=== PATIENT | female | born 1930 | race Caucasian/White ===

== ENCOUNTER 2017-02-26 13:59 | Inpatient (IN) | payer MEDICARE ==
[2017-02-26] VITALS (18 sets, daily range): BP systolic 129–184; BP diastolic 58–115; PULSE 58–102; RESP 12–32; TEMP 97.3–98.1; O2SAT 93–100
[~2017-02-26 13:59] MED LIST: ALPR0.25 PO; AMLO5TAB22 PO; ASPI81TA82 PO; CALCTAB75 PO; CHOL1CAP6 PO; DONE5TAB14 PO; FURO20 PO; LEVO50TA51; MACR100C2 PO; POTA8TAB27 PO; PRIL20CA PO; PROP80TA PO
[2017-02-26] MEDS ORDERED: SODIUM CHLOR 0.9% 1000 ML INJ 1,000 ML IV ONE (14:07)
[2017-02-26 14:20] LABS: I-STAT POTASSIUM 4.3 MMOL/L (3.5-4.9); I-STAT SODIUM 138 MMOL/L (138-146)
[2017-02-26 14:22] LABS: AUTOMATED NEUTROPHIL # 4.6 TH/MM3 (1.8-7.7); BASOPHIL # 0.1 TH/MM3 (0-0.2); BASOPHIL % 0.4 % (0.0-2.0); EOSINOPHIL # 0.2 TH/MM3 (0-0.4); EOSINOPHIL % 1.5 % (0.0-4.0); HEMATOCRIT 41.7 % (35.0-46.0); MEAN CELL VOLUME 91.2 FL (80.0-100.0); MONO % 6.3 % (0.0-8.0); NEUT % 33.8 % (16.0-70.0); PLATELET COUNT 210 TH/MM3 (150-450); RED BLOOD COUNT 4.58 MIL/MM3 (4.00-5.30); RED CELL DISTRIBUTION WIDTH 14.4 % (11.6-17.2); WHITE BLOOD COUNT 13.7 TH/MM3 (4.0-11.0)
--- NOTE | 2017-02-26 14:25 | RADRPT ---
EXAM DATE/TIME: 02/26/2017 14:08 [facility] COMPARISON: CT BRAIN W/O CONTRAST, October 17, 2013, 23:05. INDICATIONS : Stroke alert, right sided weakness and rightward gaze. RADIATION DOSE: 56.35 CTDIvol (mGy) This report was called by Dr. Marcum to Dr. Oquendo at 2: 22 PM MEDICAL HISTORY : Non-responsive. SURGICAL HISTORY : Non-responsive. ENCOUNTER: Initial ACUITY: 1 day PAIN SCALE: Non-responsive LOCATION: Bilateral head TECHNIQUE: Multiple contiguous axial images were obtained of the head. Using automated exposure control and adj ustment of the mA and/or kV according to patient size, radiation dose was kept as low as reasonably a chievable to obtain optimal diagnostic quality images. DICOM format image data is available electro nically for review and comparison. FINDINGS: CEREBRUM: The ventricles are normal for age. No evidence of midline shift, mass lesion, hemorrhage or acute in farction. No extra-axial fluid collections are seen. POSTERIOR FOSSA: The cerebellum and brainstem are intact. The 4th ventricle is midline. The cerebellopontine angle i s unremarkable. EXTRACRANIAL: The visualized portion of the orbits is intact. SKULL: The calvaria is intact. No evidence of skull fracture. CONCLUSION: 1. White matter ischemic changes. No acute intracranial abnormality. Virgilio Marcum MD on February 26, 2017 at 14:19 Board Certified Radiologist. This report was verified electronically.
[2017-02-26] MEDS ORDERED: LORazepam 2 MG/ML VIAL ONE (14:26)
[2017-02-26 14:28] LABS: HEMO FLAGS AUTO DIFF
[2017-02-26 14:31] LABS: APTT (PATIENT) 22.3 SEC (24.3-30.1); PROTHROMBIN TIME - PATIENT 10.9 SEC (9.8-11.6)
[2017-02-26 14:39] LABS: BETA HCG QUANT 4 MIU/ML (0-5)
[2017-02-26 14:40] LABS: CREATINE KINASE 36 U/L (26-192)
[2017-02-26] MEDS ORDERED: FOSPHENYTOIN INJ 1,000 MGPE in SODIUM CHLORIDE 0.9% INJ 50 ML IV ONE (14:45)
[2017-02-26] MEDS ORDERED: ETOMIDATE 20 MG/10 ML VIAL IVP ONE (14:45)
[2017-02-26] MEDS ORDERED: SUCCINYLCHOLINE CHLORIDE 200 MG/10 ML VIAL IVP ONE (14:45)
[2017-02-26] MEDS ORDERED: SODIUM CHLORIDE 0.9% FLUSH 10 ML FLUSH IVF PRN (14:45)
--- NOTE | 2017-02-26 14:52 | PD ---
HPI Chief Complaint: Stroke Alert Time Seen by Provider: 14:07 Travel History International Travel<30 days: No Contact w/Intl Traveler<30days: No History of Present Illness HPI This is an 86-year-old female who reportedly was at her custodial going to sit down to eat when she lost consciousness and the staff helped her to the floor. Onset of symptoms at 1:30. She evidently had a GCS of 3 for about 15 minutes. When EMS arrived she slowly started to have some purposeful movements moving her arms and mumbling. Per paperwork the patient has a history of heart disease, chronic kidney disease and COPD as well as hypertension. PFSH Past Medical History Arthritis: Yes Asthma: Yes Blood Disorders: No Anxiety: Yes Depression: Yes Heart Rhythm Problems: No Cancer: No Cardiac Catheterization: No Cardiovascular Problems: No High Cholesterol: No Congestive Heart Failure: No COPD: Yes Diabetes: No Diminished Hearing: No Endocrine: Yes Gastrointestinal Disorders: Yes (GERD, HEMORRHOIDS, FECAL IMPACTION TENDENCY) GERD: Yes Glaucoma: No Genitourinary: Yes (INCONTINENCE) Hiatal Hernia: Yes Hypertension: Yes Immune Disorder: No Musculoskeletal: Yes (ARTHRITIS, DDD, OSTEOPORESIS) Neurologic: Yes (TRIGEMINAL NEURALGIA, MIGRAINES) Psychiatric: Yes (DEPRESSION) Reproductive: No Respiratory: Yes (COPD, ASTHMA) Immunizations Current: Yes Thyroid Disease: Yes Menopausal: Yes : 1 Para: 1 Tubal Ligation: Yes Past Surgical History Abdominal Surgery: Yes (LAP ROSALIND, APPY) AICD: No Appendectomy: Yes Cholecystectomy: Yes Coronary Artery Bypass Graft: No Eye Surgery: Yes (CATARACT EXTRACT.) Genitourinary Surgery: Yes ("BLADDER SX") Gynecologic Surgery: Yes (TUBAL LIG., HYSTERECTOMY, RECTOCELE REP.) Hysterectomy: Yes (72) Joint Replacement: No Neurologic Surgery: Yes (L5 SURGERY, CERVICAL FUSION, KYPHOPLASTY) Oral Surgery: Yes (T & A) Pacemaker: No Tonsillectomy: Yes (at age 13) Other Surgery: Yes Social History Alcohol Use: Yes (rare) Tobacco Use: No Substance Use: No Allergies-Medications (Allergen,Severity, Reaction): Coded Allergies: Hydrocodone (Verified Allergy, Severe, HALLUCINATIONS, 07/31/16) Reported Meds & Prescriptions Reported Meds & Active Scripts Active Macrobid (Nitrofurantoin Monoh/Nitrofur Macro) 100 Mg Cap 100 Mg PO BID 10 Days Amlodipine5 5 Mg Tab 1 Tab PO DAILY Reported Prilosec 20 mg (Omeprazole) 20 Mg Cap 20 Mg PO DAILY Vitamin D-3 (Cholecalciferol) 1,000 Unit Tab 1,000 Unit PO BID Alprazolam 0.25 Mg Tab 0.25 Mg PO Q8HR PRN Aspir-81 (Aspirin) 81 Mg Tab 81 Mg PO DAILY Donepezil 5 mg 5 Mg Tab 5 Mg PO DAILY Potassium Chloride ER 8 meq (Potassium Chloride) 8 Meq Tab 8 Meq PO Lasix 20 Mg Tab (Furosemide) 20 Mg Tab 20 Mg PO Calcium Citrate +D+D + Tab 1 Tab PO DAILY Texaapt86 Mg 80 Mg Tab 80 Mg PO DAILY Levoxyl (Levothyroxine Sodium) 50 Mcg Tab 50 Mcg DAILY Review of Systems ROS Limitations: Unresponsive Physical Exam Narrative GENERAL: Ill-appearing SKIN: Focused skin assessment warm and dry. HEAD: Atraumatic. Normocephalic. EYES: Pupils equal and round. No injection or drainage. ENT: Some blood in her mouth. NECK: Trachea midline. CARDIOVASCULAR: Regular rate and rhythm. No murmur appreciated. RESPIRATORY: Clear to auscultation. Breath sounds equal bilaterally. GASTROINTESTINAL: Abdomen soft, non-tender, nondistended. MUSCULOSKELETAL: No obvious deformities. NEUROLOGICAL: Fixed gaze deviation to the right, some facial droop on the right , weakness of the left upper extremity, doesn't lift either leg, mumbles some sounds Data Data Last Documented VS Vital Signs Date Time Temp Pulse Resp B/P Pulse Ox O2 Delivery O2 Flow Rate FiO2 02/26/17 14:41 83 12 141/67 100 Ventilator 100 02/26/17 14:04 4.00 Orders Diet Npo (02/26/17 Dinner) Activity Bed Rest (02/26/17 ) Electrocardiogram (02/26/17 ) I-Stat Creatinine (02/26/17 14:07) I-Stat Profile (02/26/17 14:07) Prothrombin Time / Inr (Pt) (02/26/17 14:07) Act Partial Throm Time (Ptt) (02/26/17 14:07) Complete Blood Count With Diff (02/26/17 14:07) Fibrinogen (02/26/17 14:07) Creatine Kinase (Cpk) (02/26/17 14:07) Troponin I (02/26/17 14:07) Ua Includes Microscopic (02/26/17 14:07) Drug Screen, Random Urine (02/26/17 14:07) Type And Screen (02/26/17 14:07) Ct Brain W/O Iv Contrast(Rout) (02/26/17 ) Beta Hcg (Quant/Titer) (02/26/17 14:07) Consult Neurology (02/26/17 ) Blood Glucose (02/26/17 14:07) Ecg Monitoring (02/26/17 14:07) Neuro Checks Q2HX12,Q4H (02/26/17 14:07) Nursing Bedside Swallow Assess .ONCE (02/26/17 14:07) Iv Access Insert/Monitor (02/26/17 14:07) NPO (02/26/17 14:07) Oximetry (02/26/17 14:07) Oxygen Administration (02/26/17 14:07) Sodium Chlor 0.9% 1000 Ml Inj (Ns 1000 M (02/26/17 14:07) Resp Oxygen Reese C Titrat 1-4 L (02/26/17 14:07) Cath For Specimen (02/26/17 14:07) Lorazepam Inj (Ativan Inj) (02/26/17 14:26) (Hub Use Only)Inp Phy Cons/Ref (02/26/17 ) Fosphenytoin Inj (Cerebyx Inj) (02/26/17 14:45) Chest, Single Ap (02/26/17 14:40) Arterial Blood Gas (Abg) (02/26/17 14:40) Ng Gastric Tube Insert/Monitor (02/26/17 14:40) Urinary Catheter Insert/Apply (02/26/17 14:40) Etomidate Inj (Amidate Inj) (02/26/17 14:45) Succinylcholine Inj (Quelicin Inj) (02/26/17 14:45) Sodium Chloride 0.9% Flush (Ns Flush) (02/26/17 14:45) Portable Eeg (02/26/17 ) Propofol 1000 Mg/100 Ml Inj (Diprivan 10 (02/26/17 14:45) ^ Infusion (02/26/17 14:43) RASS (02/26/17 14:43) Neurological Rass Scale JOSS.Q2H (02/26/17 14:43) Admit Order (Ed Use Only) (02/26/17 14:59) Labs Laboratory Tests Test 02/26/17 14:08 White Blood Count 13.7 TH/MM3 Red Blood Count 4.58 MIL/MM3 Hemoglobin 13.8 GM/DL Bedside Hemoglobin 15.0 G/DL Hematocrit 41.7 % Bedside Hematocrit 44.0 % Mean Corpuscular Volume 91.2 FL Mean Corpuscular Hemoglobin 30.0 PG Mean Corpuscular Hemoglobin 33.0 % Concent Red Cell Distribution Width 14.4 % Platelet Count 210 TH/MM3 Mean Platelet Volume 8.8 FL Neutrophils (%) (Auto) 33.8 % Lymphocytes (%) (Auto) 58.0 % Monocytes (%) (Auto) 6.3 % Eosinophils (%) (Auto) 1.5 % Basophils (%) (Auto) 0.4 % Neutrophils # (Auto) 4.6 TH/MM3 Lymphocytes # (Auto) 8.0 TH/MM3 Monocytes # (Auto) 0.9 TH/MM3 Eosinophils # (Auto) 0.2 TH/MM3 Basophils # (Auto) 0.1 TH/MM3 CBC Comment AUTO DIFF Differential Comment AUTO DIFF CONFIRMED Platelet Estimate NORMAL Platelet Morphology Comment NORMAL Prothrombin Time 10.9 SEC Prothromb Time International 1.0 RATIO Ratio Activated Partial 22.3 SEC Thromboplast Time Fibrinogen 374 mg/dL Bedside Sodium 138 MMOL/L Bedside Potassium 4.3 MMOL/L Bedside Chloride 103 MMOL/L Bedside Blood Urea Nitrogen 18 MG/DL Bedside Creatinine 0.8 MG/DL Bedside Glucose 120 MG/DL Total Creatine Kinase 36 U/L Troponin I LESS THAN 0.02 NG/ML Human Chorionic Gonadotropin, 4 MIU/ML Quant Blood Type A NEGATIVE Antibody Screen NEGATIVE Blood Bank Comment [facility] Medical Screen Exam Complete: Yes Emergency Medical Condition: Yes EKG Prior to Arrival: No Differential Diagnosis Leukocytosis troponin is normal Last [address] 02/26/17 0000 Signed Impressions: Service Date/Time: Sunday, February 26, 2017 14:08 - CONCLUSION: 1. White matter ischemic changes. No acute intracranial abnormality. Virgilio Marcum MD Chest x-ray: Endotracheal tube is in position Narrative Course This is an 86-year-old female who presents to the emergency department ended up unresponsive at her custodial. She had a GCS of 3 for over 15 minutes and had minimal neurologic response with EMS. On arrival she was placed on a monitor and an IV was established. She is found have an NIH stroke scale of 30. CT was negative for intracranial hemorrhage. I spoke to Dr. Sanchez who was on-call for stroke. Due to the patient's advanced age and advanced NIH stroke scale Dr. Sanchez felt that the patient was very high risk and he preferred not to do tPA on this patient. Pt. went to CT where she had a seizure. I was concerned for possible aspiration so the patient was intubated. I did have a conversation with the patient's children explaining what was going on. They say the patient does have a living will, and she would not want to be kept alive artificially. We discussed that it would be reasonable to obtain an EEG and MRI and identify what the etiology of the patient's symptoms are. If it is a stroke the patient likely has a poor prognosis and the family expressed understanding. Critical Care Narrative Aggregate critical care time was 50 minutes. Time to perform other separately billable procedures was not included in the critical care time. My time did not include minutes spent treating any other patients simultaneously or on activities that did not directly contribute to the patient's treatment. The services I provided to this patient were to treat and/or prevent clinically significant deterioration that could result in: Disability, I provided critical care services requiring my management, as noted below: Chart data review, documentation time, medication orders and management, vital sign assessments/reviewing monitor data, ordering and reviewing lab tests, ordering and interpreting/reviewing x-rays and diagnostic studies, care of the patient and discussion of the patient with the admitting physicians. Stroke Alert NIHSS NIH Stroke Scale Result: 30 NIHSS Time Completed: 14:03 Physician Communication Physician Communication Discussed with Dr. Sanchez and Dr. Barker Diagnosis Diagnosis: Primary Impression: Seizure Admitting Physician Requests: Admit Fely Oquendo MD Feb 26, 2017 14:52
[2017-02-26] MEDS: PROPOFOL 1000 MG/100 ML INJ 100 ML IV SCH ×3 (14:54→23:50)
[2017-02-26 15:07] LABS: PLATELET ESTIMATE SMEAR NORMAL (NORMAL); PLATELET MORPHOLOGY NORMAL (NORMAL); SCAN/DIFF AUTO DIFF CONFIRMED
[2017-02-26] MEDS ORDERED: RANI150T PO (15:42)
[2017-02-26] MEDS ORDERED: FURO20TA PO (15:42)
[2017-02-26] MEDS ORDERED: PROP80TA PO (15:42)
[2017-02-26] MEDS ORDERED: DONE10TA7 PO (15:42)
[2017-02-26] MEDS ORDERED: IPRASOL INH (15:42)
[2017-02-26] MEDS ORDERED: LEVO50TA4 PO (15:42)
[2017-02-26] MEDS ORDERED: KLOR8TAB PO (15:42)
--- NOTE | 2017-02-26 15:45 | RADRPT ---
EXAM DATE/TIME: 02/26/2017 15:02 [facility] COMPARISON: No previous studies available for comparison. INDICATIONS : Stroke alert. Syncopal episode. Seizure. Vomiting blood. Post intubation. MEDICAL HISTORY : Non-responsive. SURGICAL HISTORY : Non-responsive. ENCOUNTER: Initial ACUITY: 1 day PAIN SCORE: Non-responsive. LOCATION: Bilateral chest FINDINGS: Endotracheal tube and passage position. NG tube in distal esophagus. No focal lung consolidation. No pneumothorax or effusion. Heart size upper limits normal. Atherosclerotic and tortuous aorta. Previou s right shoulder joint replacement. CONCLUSION: 1. Nasogastric tube tip in distal esophagus. This is not seen to enter the stomach. 2. Endotracheal tube in satisfactory position. 3. Remote compression deformity lower thoracic spine status post kyphoplasty. 4. No lung consolidation or pleural effusion identified. Virgilio Marcum MD on February 26, 2017 at 15:41 Board Certified Radiologist. This report was verified electronically.
--- NOTE | 2017-02-26 16:15 | HHI.HP ---
[facility] Service Critical Care Medicine Primary Care Physician Karina Dwyer MD Admission Diagnosis seizure Diagnosis: (1) Memory loss Diagnosis: Principal (2) Seizure Diagnosis: Principal (3) Respiratory failure Diagnosis: Principal (4) Depression Diagnosis: Principal (5) Gastroesophageal reflux disease Diagnosis: Principal (6) COPD (chronic obstructive pulmonary disease) Diagnosis: Principal (7) Hypothyroidism Diagnosis: Principal (8) Chronic cough Diagnosis: Principal (9) Chronic constipation Diagnosis: Principal (10) Dementia Diagnosis: Principal (11) Leukocytosis Diagnosis: Principal (12) Osteoporosis Diagnosis: Principal (13) Compression fracture of body of thoracic vertebra Diagnosis: Secondary (14) Altered mental status, unspecified Diagnosis: Principal (15) Dyspnea on exertion Diagnosis: Principal (16) Hyperlipidemia Diagnosis: Principal (17) Chronic pain Diagnosis: Principal (18) Hypertension Diagnosis: Principal (19) GERD (gastroesophageal reflux disease) Diagnosis: Principal Chief Complaint: Presents from alf with altered mental status and NIH score 30. Travel History International Travel<30 Days: No Contact w/Intl Traveler <30 Da: No Traveled to Known Affected Are: No History of Present Illness 86-year-old female. Full code. Patient is a resident of [facility] assisted [facility]. She has a living will stating that she does not want to be kept on prolonged life support however at the present time she is a full code. Patient presented to [facility] for the following history. She has history of dementia, depression, gastroesophageal reflux disease, COPD, hypothyroidism, osteoarthritis/osteoporosis, compression fractures, hypertension, dyslipidemia, chronic lower extremity edema and chronic pain syndrome. According to records, at 1:30 PM patient became unresponsive and was taken the floor lightly by assistance at her living facility. Unknown if she struck her head. Her GCS score was documented as 3 for approximately 15 minutes later she became more responsive. She is transferred to [facility] for further evaluation treatment. A stroke alert was called. BMP was unremarkable. CBC showed a leukocytosis. CT head showed white matter ischemic changes otherwise unremarkable. In CAT scan patient was noted to have a generalized tonic-clonic seizures unknown duration with questionable aspiration and after which, patient received received 20 mg etomidate 100 mg of succinylcholine was intubated by ED physician. Dr. Sanchez/neurology was contacted. Due to patient's age and NIH of 30 not a candidate for TPA. MRI/MRA brain/neck can EEG currently pending. Review of Systems ROS Limitations: Intubated Past Family Social History Allergies: Coded Allergies: Hydrocodone (Verified Allergy, Severe, HALLUCINATIONS, 02/26/17) Past Medical History Dementia disorder NOS Depression Gastroesophageal reflux disease COPD/asthma Hypothyroidism Compression fracture cervical/thoracic vertebrae/multiple Chronic cough Chronic constipation Hypertension Dyslipidemia Hypothyroidism Osteoporosis/osteoarthritis Chronic lower extremity lymphedema Gastroesophageal reflux disease Chronic pain syndrome Past Surgical History Right shoulder hemiarthroplasty T11 kyphoplasty Appendectomy Bladder suspension Cholecystectomy Hemorrhoidectomy Hysterectomy Rectocele repair Tonsillectomy and adenoidectomy Cataract repair Lumbar laminectomy C-spine fusion Bilateral left wrist plating Reported Medications Macrobid (Nitrofurantoin Monoh/Nitrofur Macro) 100 Mg Cap 100 Mg PO BID 10 Days Amlodipine5 5 Mg Tab 1 Tab PO DAILY Reported Prilosec 20 mg (Omeprazole) 20 Mg Cap 20 Mg PO DAILY Vitamin D-3 (Cholecalciferol) 1,000 Unit Tab 1,000 Unit PO BID Alprazolam 0.25 Mg Tab 0.25 Mg PO Q8HR PRN Aspir-81 (Aspirin) 81 Mg Tab 81 Mg PO DAILY Donepezil 5 mg 5 Mg Tab 5 Mg PO DAILY Potassium Chloride ER 8 meq (Potassium Chloride) 8 Meq Tab 8 Meq PO Lasix 20 Mg Tab (Furosemide) 20 Mg Tab 20 Mg PO Calcium Citrate +D+D + Tab 1 Tab PO DAILY Catnwwn49 Mg 80 Mg Tab 80 Mg PO DAILY Levoxyl (Levothyroxine Sodium) 50 Mcg Tab 50 Mcg DAILY Active Ordered Medications Reviewed in EMR Family History Father at age 62 myocardial infarcts. One brother with multiple coronary stents. Sister in her 70s of heart disease. Social History Three quarters pack per day tobacco 30 years. Quit 1979. Occasional wine. No IV drug use. Physical Exam Vital Signs Vital Signs Date Time Temp Pulse Resp B/P Pulse Ox O2 Delivery O2 Flow Rate FiO2 02/26/17 15:31 82 132/78 97 Ventilator 02/26/17 14:50 72 165/77 99 Ventilator 02/26/17 14:41 83 12 141/67 100 Ventilator 100 02/26/17 14:39 50 02/26/17 14:37 98 50 02/26/17 14:32 158/106 02/26/17 14:20 80 26 184/78 99 Nasal Cannula 3 02/26/17 14:10 81 26 167/77 99 Nasal Cannula 3 02/26/17 14:10 96 Nasal Cannula 3 02/26/17 14:04 97 Nasal Cannula 4.00 02/26/17 14:04 97 4.00 02/26/17 13:59 97.3 102 32 145/115 93 Physical Exam GENERAL: 86 year old female, critically ill currently orotracheally intubated SKIN: Warm and dry. No rash HEAD: Atraumatic. Normocephalic. EYES: Right pupil is 3 mm instructed 2 mm with light. Left pupil is sluggish but reactive. Fixed gaze. ENT: No nasal bleeding or discharge. Mucous membranes pink and moist. Obvious trauma to left lateral aspect of tongue. NECK: Trachea midline. No JVD. CARDIOVASCULAR: Regular rate and rhythm. S1, S2. No S4. Without murmur RESPIRATORY:Clear to auscultation. Breath sounds equal bilaterally. GASTROINTESTINAL: Abdomen soft, non-tender, nondistended. Hypoactive bowel sounds are appreciated MUSCULOSKELETAL: Extremities with 1+ nonpitting lower extremity edema. NEUROLOGICAL: Pupils as above. Slight right facial droop. Moving right upper extremity spontaneously. Extending left upper and lower extremes. Upward toes bilaterally. Laboratory Laboratory Tests Test 02/26/17 14:08 White Blood Count 13.7 Red Blood Count 4.58 Hemoglobin 13.8 Bedside Hemoglobin 15.0 Hematocrit 41.7 Bedside Hematocrit 44.0 Mean Corpuscular Volume 91.2 Mean Corpuscular Hemoglobin 30.0 Mean Corpuscular Hemoglobin 33.0 Concent Red Cell Distribution Width 14.4 Platelet Count 210 Mean Platelet Volume 8.8 Neutrophils (%) (Auto) 33.8 Lymphocytes (%) (Auto) 58.0 Monocytes (%) (Auto) 6.3 Eosinophils (%) (Auto) 1.5 Basophils (%) (Auto) 0.4 Neutrophils # (Auto) 4.6 Lymphocytes # (Auto) 8.0 Monocytes # (Auto) 0.9 Eosinophils # (Auto) 0.2 Basophils # (Auto) 0.1 CBC Comment AUTO DIFF Differential Comment AUTO DIFF CONFIRMED Platelet Estimate NORMAL Platelet Morphology Comment NORMAL Prothrombin Time 10.9 Prothromb Time International 1.0 Ratio Activated Partial 22.3 Thromboplast Time Fibrinogen 374 Bedside Sodium 138 Bedside Potassium 4.3 Bedside Chloride 103 Bedside Blood Urea Nitrogen 18 Bedside Creatinine 0.8 Bedside Glucose 120 Total Creatine Kinase 36 Troponin I LESS THAN 0.02 Human Chorionic Gonadotropin, 4 Quant Blood Type A NEGATIVE Antibody Screen NEGATIVE Blood Bank Comment Result Diagram: 02/26/17 1408 Imaging Last Impressions Chest X-Ray 02/26/17 1440 Signed Impressions: Service Date/Time: Sunday, February 26, 2017 15:02 - CONCLUSION: 1. Nasogastric tube tip in distal esophagus. This is not seen to enter the stomach. 2. Endotracheal tube in satisfactory position. 3. Remote compression deformity lower thoracic spine status post kyphoplasty. 4. No lung consolidation or pleural effusion identified. Virgilio Marcum MD Head CT 02/26/17 0000 Signed Impressions: Service Date/Time: Sunday, February 26, 2017 14:08 - CONCLUSION: 1. White matter ischemic changes. No acute intracranial abnormality. Virgilio Marcum MD Assessment and Plan Assessment and Plan Neuro/Psych: Seizure Question CVA with right facial droop/unresponsiveness of NH score 30 Dementia disorder not otherwise specified Depression Chronic benzodiazepine use Currently on currently in propofol 20 mu./kg/m for sedation while intubated Goal of RASS -[address] head 02/26 revealed chronic white matter ischemic changes and findings. Dr. Sanchez notified. Recommended no alteplase secondary to patient's advanced age and NIH score 30. EEG ordered currently undergoing MRI brain/MRA brain/neck currently pending Loaded with fosphenytoin 1 g IV 1. Currently 100 mg 3 times a day. Check phenytoin level in AM. Goal keep systolic blood pressure less than 220/diastolic blood pressure less than 120. 2-D echocardiogram ordered. Check lipids/hemoglobin A1c Continue with aspirin 162 mg by tube daily. Holding Xanax 0.25 mg as needed for anxiety Holding denies a pill 10 mg by mouth daily. Resp: Acute respiratory failure Asthma/COPD PRVC 14/tidal volume around 450/1/5/50 Ventilator bundle Due nebs every 6 hours with albuterol every 2 hours when necessary Chest x-ray revealed no acute pulmonary findings. CV: Hypertension Dyslipidemia Chronic lower extremity lymphedema Home medications Inderal 80 mg by mouth daily on hold. A lot passive hypertension 2-D echocardiogram/EKG ordered. Troponin pending. As needed labetalol/Cardene drip to keep systolic blood pressure less than 220. Olding Lasix 20 no grams by mouth daily and potassium chloride 8 mEq by mouth daily. GI: Gastroesophageal reflux disease Chronic constipation Orogastric tube to low intermittent wall suction Protonix for GI prophylaxis. On Prilosec 20 mg by mouth daily at home. Marisela-Colace for bowel regimen : Coronel catheter for accurate I's and O's in a critically ill patient Endo: Hypothyroidism Continue Levoxyl 50 mg by tube daily. Check TSH Sliding-scale insulin with Accu checks every 6 hours to maintain euglycemia/low regimen. Check hemoglobin A1c Renal: Creatinine currently 0.8. Accurate I's and O's Monitor urine output Heme: Leukocytosis Monitor CBC daily. Monitor trends Follow-up on coags ID: Monitor for infection Start empirically on Zosyn for likely aspiration pneumonia Sputum ordered FEN: Replace electrolytes as clinically indicated MSK: History of cervical/thoracic compression fractures Osteoporosis/osteoarthritis Physical therapy evaluate and treat Continue calcium vitamin D and vitamin D 3. Access - Utilize peripheral IV. Central line if indicated Prophylaxis - GI - Protonix - DVT - SCD/heparin subcutaneous Critical Care: The total critical care time was 45 minutes. Time to perform other separately billable procedures was not included in the critical care time. Code Status Full code Discussed Condition With Dr. Oquendo/ED physician. Family discussed with healthcare proxy Shira Velarde care plan discussed and all questions answered. Problem Qualifiers (1) Respiratory failure: Qualified Code: J96.00 - Acute respiratory failure, unspecified whether with hypoxia or hypercapnia (2) Depression: Qualified Code: F32.9 - Depression, unspecified depression type (3) Gastroesophageal reflux disease: Qualified Code: K21.9 - Gastroesophageal reflux disease without esophagitis (4) COPD (chronic obstructive pulmonary disease): Qualified Code: J44.9 - Chronic obstructive pulmonary disease, unspecified COPD type (5) Hypothyroidism: Qualified Code: E03.9 - Hypothyroidism, unspecified type (6) Dementia: (7) Leukocytosis: Qualified Code: D72.829 - Leukocytosis, unspecified type (8) Osteoporosis: Qualified Code: M81.0 - Osteoporosis without current pathological fracture, unspecified osteoporosis type (9) Hyperlipidemia: Qualified Code: E78.5 - Hyperlipidemia, unspecified hyperlipidemia type (10) Chronic pain: Qualified Code: G89.29 - Other chronic pain (11) GERD (gastroesophageal reflux disease): Qualified Code: K21.9 - Gastroesophageal reflux disease, esophagitis presence not specified Aidan Barker MD Feb 26, 2017 16:15
[2017-02-26] MEDS: SODIUM CHLOR 0.9% 1000 ML INJ 1,000 ML IV SCH (16:20)
[2017-02-26] MEDS ORDERED: SODIUM CHLORIDE 0.9% FLUSH 5 ML FLUSH IV FLUSH PRN (16:30)
[2017-02-26] MEDS ORDERED: DEXTROSE 50% IN WATER 50 ML VIAL(D50) IV PRN (16:30)
[2017-02-26] MEDS ORDERED: ACETAMINOPHEN 325 MG TAB PO PRN (16:30)
[2017-02-26] MEDS ORDERED: SENNOSIDES 8.6 MG TAB PO PRN (16:30)
[2017-02-26] MEDS ORDERED: MAGNESIUM HYDROXIDE SUSP 30 ML CUP PO PRN (16:30)
[2017-02-26] MEDS ORDERED: LACTULOSE SYRUP 20 GM/30 ML CUP PO PRN (16:30)
[2017-02-26] MEDS ORDERED: BISACODYL 10 MG SUPP RECTAL PRN (16:30)
[2017-02-26] MEDS ORDERED: CHLORHEXIDINE GLUCONATE 2 % 1 PACK (2 CLOTHS) TOP PRN (16:30)
[2017-02-26] MEDS ORDERED: GLUCAGON 1 MG/ML VIAL OTHER PRN ×2 (16:30)
[2017-02-26] MEDS ORDERED: DEXTROSE 50% IN WATER 50 ML VIAL(D50) IV PUSH PRN (16:30)
[2017-02-26] MEDS ORDERED: ONDANSETRON HCL 4 MG/2 ML VIAL IV PRN (16:30)
[2017-02-26] MEDS ORDERED: RESP: ALBUTEROL 2.5 MG/3 ML NEB (PRN) INH (16:30)
[2017-02-26] MEDS ORDERED: PROPOFOL 1000 MG/100 ML INJ 100 ML IV SCH (16:30)
[2017-02-26] MEDS ORDERED: LABETALOL HCL 100 MG/20 ML VIAL IV PRN (16:30)
[2017-02-26] MEDS ORDERED: MISCELLANEOUS NURSING INFORMATION XX SCH (16:30)
[2017-02-26] MEDS ORDERED: niCARdipine INJ 25 MG in SODIUM CHLOR 0.9% 250 ML INJ 250 ML IV SCH (16:30)
[2017-02-26] MEDS ORDERED: SODIUM CHLORIDE 0.9% FLUSH 10 ML FLUSH IV FLUSH PRN (16:30)
[2017-02-26 16:51] LABS: BLOOD GAS BASE EXCESS -0.6 mmol/L (-2-2); BLOOD GAS CARBOXYHEMOGLOBIN 0.9 % (0-4); BLOOD GAS HCO3 23 mmol/L (22-26); BLOOD GAS O2 HGB SATURATION 97 % (90-100); BLOOD GAS OXYGEN CONTENT 18.4 Vol % (12.0-20.0); BLOOD GAS PCO2 37 mmHg (38-42); BLOOD GAS PO2 150 mmHg (61-120); BLOOD GAS TOTAL HGB 13.3 G/DL (12.0-16.0); CRITICAL VALUE NO; OXYGEN DEVICE VENTILATOR; TEMP CORR TO 98.6
[2017-02-26 16:52] LABS: DRAW SITE RT RADIAL; FIO2 50 %; NUMBER OF ARTERIAL PUNCTURES 1; STAT NO; ULNAR PULSE PRESENT; VENT SETTINGS PRVC/AC
[2017-02-26] MEDS: ARTIFICIAL TEARS OPTH SOLN 15 ML BTL EACH EYE SCH (17:49)
[2017-02-26] MEDS: HEPARIN SODIUM - SQ 10,000 UNITS/ML VIAL SQ SCH (18:00)
[2017-02-26] MEDS ORDERED: INSULIN NovoLIN REGULAR SUPPLEMENTAL SCALE SQ SCH (18:00)
[2017-02-26] MEDS: CHLORHEXIDINE 0.12% (ORAL KIT) 15 ML CUP MT SCH (20:00)
[2017-02-26] MEDS: PRAVASTATIN SOD 40 MG TAB PO SCH (20:17)
[2017-02-26] MEDS: PIPERACIL-TAZO 4.5 GM PREMIX 100 ML IV SCH (20:17)
[2017-02-26] MEDS: SODIUM CHLORIDE 0.9% FLUSH 10 ML FLUSH IV FLUSH SCH (20:18)
[2017-02-26] MEDS ORDERED: SODIUM CHLORIDE 0.9% FLUSH 5 ML FLUSH IV FLUSH SCH (21:00)
[2017-02-26] MEDS: INSULIN ASPART SUPPLEMENTAL SCALE SQ SCH (21:00)
[2017-02-26] MEDS: DOCUSATE SODIUM 50 MG/SENNA 8.6 MG TAB PO SCH (21:00)
[2017-02-26] MEDS ORDERED: GADODIAMIDE PF 287 MG/ML 10 ML VIAL (for RAD MRI) IV ONE (21:12)
[2017-02-26 21:19] LABS: APTT (PATIENT) 25.1 SEC (24.3-30.1)
[2017-02-26 21:20] LABS: ANION GAP 9 MEQ/L (5-15); AST (GOT) 28 U/L (15-37); BICARBONATE 28.5 MEQ/L (21.0-32.0); BLOOD UREA NITROGEN 14 MG/DL (7-18); CHLORIDE 101 MEQ/L (98-107); GLOMERULAR FILTRATION RATE 70 ML/MIN (>89); MAGNESIUM 1.9 MG/DL (1.5-2.5); POTASSIUM 3.6 MEQ/L (3.5-5.1); SODIUM (NA) 138 MEQ/L (136-145)
[2017-02-26 21:30] LABS: ALKALINE PHOSPHATASE 74 U/L (45-117); ALT (GPT) 17 U/L (10-53); TOTAL BILIRUBIN ADULT 0.6 MG/DL (0.2-1.0)
[2017-02-26 21:31] LABS: CREATINE KINASE 74 U/L (26-192)
[2017-02-26] MEDS: RESP: ALBUTEROL 2.5 MG/IPRATROPIUM 0.5 MG NEB (SCH) INH (21:51)
--- NOTE | 2017-02-26 22:06 | RADRPT ---
EXAM DATE/TIME: 02/26/2017 21:07 [facility] COMPARISON: No previous studies available for comparison. INDICATIONS : Seizures. Unresponsive. MEDICAL HISTORY : Hypertension. Chronic obstructive pulmonary disease. Cardiovascular disease. SURGICAL HISTORY : Fusion, cervical. Tonsillectomy. Kyphoplasty. ENCOUNTER: Initial ACUITY: 1 day PAIN SCORE: 0/10 LOCATION: cranial TECHNIQUE: Multiplanar, multisequence MRI of the brain was performed without contrast. FINDINGS: CEREBRUM: The ventricles and cortical sulci are widened. No evidence of midline shift, mass lesion, hemorrhage or acute infarction. No extraaxial fluid collections are seen. The pituitary gland and suprasellar cistern are normal in configuration. WHITE MATTER: There is increased signal seen throughout the cerebral and periventricular white matter. POSTERIOR FOSSA: The cerebellum and brainstem are intact. The 4th ventricle is midline. The cerebellopontine angle is unremarkable. The cerebellar tonsils are normal in position. DIFFUSION IMAGING: No focal areas of restricted diffusion are seen. No evidence of acute infarction. EXTRACRANIAL: The visualized portions of the orbits and paranasal sinuses are unremarkable. CONCLUSION: 1. No acute abnormality seen. 2. Age-related atrophy. 3. Suspected small vessel ischemic changes in the white matter. Jeff Sheppard MD on February 26, 2017 at 22:03 Board Certified Radiologist. This report was verified electronically.
--- NOTE | 2017-02-26 22:08 | RADRPT ---
EXAM DATE/TIME: 02/26/2017 21:07 [facility] COMPARISON: No previous studies available for comparison. INDICATIONS : Seizures. Unresponsive. MEDICAL HISTORY : Chronic obstructive pulmonary disease. Hypertension. Cardiovascular disease. SURGICAL HISTORY : Kyphoplasty. Fusion, cervical. Tonsillectomy. ENCOUNTER: Initial ACUITY: 1 day PAIN SCORE: 0/10 LOCATION: cranial Please note a normal MRA of the brain does not entirely exclude the possibility of a small aneurysm, nor the possibility of distal intracranial vessel disease. TECHNIQUE: 3D time of flight MRA was performed. Source images, multiplanar STS MIP, and 3D volume MIP reconstru ctions were reviewed. FINDINGS: There is excellent visualization of the major intracranial arteries out to the second-order branch ve ssels. There is no evidence for aneurysm, vessel truncation or stenosis, and no evidence for vascula r malformation. CONCLUSION: No acute disease. Jeff Sheppard MD on February 26, 2017 at 22:05 Board Certified Radiologist. This report was verified electronically.
--- NOTE | 2017-02-26 22:14 | RADRPT ---
EXAM DATE/TIME: 02/26/2017 21:07 [facility] COMPARISON: No previous studies available for comparison. INDICATIONS : Unresponsive. CONTRAST: 10 cc Omniscan (gadodiamide) IV MEDICAL HISTORY : Hypertension. Chronic obstructive pulmonary disease. Cardiovascular disease. SURGICAL HISTORY : Kyphoplasty. Fusion, cervical. Tonsillectomy. ENCOUNTER: Initial ACUITY: 1 day PAIN SCORE: 0/10 LOCATION: neck Percent stenosis is calculated using the diameter of the stenotic region over the diameter of the nor mal distal internal carotid artery. TECHNIQUE: Bolus infused MRA of the extracranial circulation was performed using a neurovascular coil. Post pro cessing was performed including rotating subvolume maximum intensity projections of each carotid paulo ry, rotating full volume maximum intensity projections of both carotid arteries, sagittal and coronal sliding thin slab reformations of each carotid artery, and left oblique sliding thin slab reformatio n through the aortic arch to include the origin of the arch branch vessels. FINDINGS: AORTIC ARCH: There is a three vessel origin of the great vessels from the aorta. No evidence of ostial narrowing. RIGHT CAROTID: The common carotid artery is intact. The carotid bulb has a normal configuration without ulceration or narrowing. The internal carotid artery lumen is smooth without stenosis. The external carotid ar christine is intact. LEFT CAROTID: The common carotid artery is intact. There is a moderate stenosis of the proximal left internal ruggiero tid artery estimated at being 50%. The external carotid artery is intact. VERTEBRALS: The vertebral arteries have a symmetric diameter. No stenotic lesions are seen. CONCLUSION: Moderate stenosis at the proximal left internal carotid artery with approximately 50% narrowing of th e lumen at this level. Jeff Sheppard MD on February 26, 2017 at 22:08 Board Certified Radiologist. This report was verified electronically.
[2017-02-26] MEDS: PHENYTOIN INJ 100 MG/2 ML VIAL IV SCH (22:18)
[2017-02-27] VITALS (18 sets, daily range): BP systolic 134–161; BP diastolic 61–71; PULSE 54–106; RESP 14–22; TEMP 97.4–98.3; O2SAT 93–100
[2017-02-27 00:34] LABS: AMPHETAMINE, URINE NEG (NEG); BARBITURATES, URINE NEG (NEG); COCAINE, URINE NEG (NEG)
[2017-02-27 00:38] LABS: BACTERIA, URINE RARE /hpf; BLOOD, URINE NEG (NEG); GLUCOSE,URINE NEG (NEG); KETONE, URINE TRACE mg/dL (NEG); MUCUS URINE FEW /lpf (OCC); NITRITE,URINE NEG (NEG); PH, URINE 7.5 (5.0-8.5); SQUAMOUS EPITHELIAL CELL URINE <1 /hpf (0-5); URINE COLOR LIGHT-YELLOW (YELLW/STRAW)
[2017-02-27] MEDS: SODIUM CHLOR 0.9% 1000 ML INJ 1,000 ML IV SCH ×2 (01:57→18:47)
[2017-02-27] MEDS: CHLORHEXIDINE GLUCONATE 2 % 1 PACK (2 CLOTHS) TOP SCH (03:11)
[2017-02-27] MEDS: RESP: ALBUTEROL 2.5 MG/IPRATROPIUM 0.5 MG NEB (SCH) INH ×4 (03:23→19:58)
[2017-02-27] MEDS: PIPERACIL-TAZO 4.5 GM PREMIX 100 ML IV SCH ×3 (03:23→21:44)
[2017-02-27 04:06] LABS: PROTHROMBIN TIME - PATIENT 11.3 SEC (9.8-11.6)
[2017-02-27 04:12] LABS: ALKALINE PHOSPHATASE 70 U/L (45-117); HDL CHOLESTEROL 80.3 MG/DL (40.0-60.0); TOTAL BILIRUBIN ADULT 0.9 MG/DL (0.2-1.0)
[2017-02-27 04:17] LABS: ALT (GPT) 17 U/L (10-53); ANION GAP 9 MEQ/L (5-15); AST (GOT) 35 U/L (15-37); BICARBONATE 26.1 MEQ/L (21.0-32.0); CHLORIDE 101 MEQ/L (98-107); GLOMERULAR FILTRATION RATE 85 ML/MIN (>89); LDL CHOLESTEROL 138 MG/DL (0-99); MAGNESIUM 1.7 MG/DL (1.5-2.5); POTASSIUM 3.9 MEQ/L (3.5-5.1); SODIUM (NA) 136 MEQ/L (136-145)
[2017-02-27 04:22] LABS: BLOOD UREA NITROGEN 12 MG/DL (7-18)
--- NOTE | 2017-02-27 04:28 | RADRPT ---
EXAM DATE/TIME: 02/27/2017 03:46 [facility] COMPARISON: CHEST SINGLE AP, February 26, 2017, 15:02. INDICATIONS : Short of breath. MEDICAL HISTORY : None. SURGICAL HISTORY : None. ENCOUNTER: Subsequent ACUITY: 1 week PAIN SCORE: 0/10 LOCATION: Bilateral chest FINDINGS: A single view of the chest demonstrates the lungs to be symmetrically aerated without evidence of mas s, infiltrate or effusion. Endotracheal tube 4 cm above the zahida. The cardiomediastinal contours a re unremarkable. Compression deformity with kyphoplasty again seen along the lower thoracic spine. CONCLUSION: No acute disease. Josh Reyes MD on February 27, 2017 at 4:26 Board Certified Radiologist. This report was verified electronically.
[2017-02-27 04:53] LABS: AUTOMATED NEUTROPHIL # 9.3 TH/MM3 (1.8-7.7); BASOPHIL % 0.2 % (0.0-2.0); EOSINOPHIL # 0.1 TH/MM3 (0-0.4); EOSINOPHIL % 0.8 % (0.0-4.0); HEMATOCRIT 42.2 % (35.0-46.0); HEMO FLAGS DIFF FINAL; LYMPH % 23.7 % (9.0-44.0); LYMPHOCYTE # 3.4 TH/MM3 (1.0-4.8); MEAN CELL VOLUME 90.6 FL (80.0-100.0); MEAN CORPUSCULAR HEMOGLOBIN 29.5 PG (27.0-34.0); MEAN CORPUSCULAR HGB CONC 32.5 % (32.0-36.0); MONO % 10.3 % (0.0-8.0); PLATELET COUNT 166 TH/MM3 (150-450); RED BLOOD COUNT 4.66 MIL/MM3 (4.00-5.30); WHITE BLOOD COUNT 14.3 TH/MM3 (4.0-11.0)
[2017-02-27] MEDS: HEPARIN SODIUM - SQ 10,000 UNITS/ML VIAL SQ SCH ×2 (05:02→18:50)
[2017-02-27] MEDS: LEVOTHYROXINE SODIUM 50 MCG TAB PO SCH (05:03)
[2017-02-27] MEDS: PHENYTOIN INJ 100 MG/2 ML VIAL IV SCH ×3 (05:03→21:59)
[2017-02-27] MEDS: PROPOFOL 1000 MG/100 ML INJ 100 ML IV SCH (05:52)
[2017-02-27] MEDS: INSULIN ASPART SUPPLEMENTAL SCALE SQ SCH ×4 (06:23→21:00)
--- NOTE | 2017-02-27 07:26 | MG ---
cc: DAVID GUTHRIE M.D. Lab No: Date: 02/26/2017 Age: 86 Sex: F Race: REQUESTING PHYSICIAN Dr. Rubio INDICATIONS FOR PROCEDURE An EEG was obtained on this 86-year-old patient with altered mental status and seizure. MEDICATIONS The patient is on Diprivan, intubated. FINDINGS The EEG is showing asleep features. There are theta and delta rhythms and there is also beta activity. With some stimulation there was some change in the background. At times the patient is described as having some arm movement but there is no associated EEG change. Photic stimulation showed no distinct change. INTERPRETATION This EEG shows some diffuse slowing but stated predominantly an asleep EEG. At times there is some questionable lateralizing features but nothing really consistent. No epileptiform features present. The findings suggest a diffuse disturbance of cerebral function, though a lot of the findings could just be a representation of the sedated status. Clinical correlation and follow-up EEGs might be of benefit. MD YASH York/PANCHO /8:02 PM /7:25 AM
[2017-02-27] MEDS: PANTOPRAZOLE SODIUM 40 MG VIAL IV SCH (08:07)
[2017-02-27] MEDS: ASPIRIN 81 MG CHEW TAB PO SCH (08:09)
[2017-02-27] MEDS: SODIUM CHLORIDE 0.9% FLUSH 10 ML FLUSH IV FLUSH SCH ×2 (08:10→22:00)
[2017-02-27] MEDS: ARTIFICIAL TEARS OPTH SOLN 15 ML BTL EACH EYE SCH ×3 (08:10→18:47)
[2017-02-27] MEDS: CHLORHEXIDINE 0.12% (ORAL KIT) 15 ML CUP MT SCH ×2 (08:10→20:00)
[2017-02-27] MEDS: DOCUSATE SODIUM 50 MG/SENNA 8.6 MG TAB PO SCH ×2 (08:10→22:00)
--- NOTE | 2017-02-27 08:12 | MB ---
cc: DAVID GUTHRIE M.D. DATE OF CONSULTATION: 02/26/2017 HISTORY OF PRESENT ILLNESS An 86-year-old seen in neurological consultation. She was seen about an hour ago or so. Earlier today I spoke to the ED physician ___ patient, Dr. Rubio, and we felt the patient was not a candidate for TPA. She came in as a stroke alert. She is a [facility] resident and suddenly became unresponsive. Her GSC was 3 for approximately 15 minutes or so, then she started to recover some neurologic functions with the patient having some purposeful movements with the arms and mumbling. She was taken to the CT scan and developed grand mal seizure. She was treated for these and required intubation. She was transferred to the intensive care unit where I saw her. PAST MEDICAL HISTORY 1. She has a history of dementia. 2. History of depression. 3. Trigeminal neuralgia. 4. Cervical spine surgery. MEDICATION 1. She was on donepezil 2. Alprazolam 3. Inderal 4. Levothyroxine 5. Aspirin. EXAMINATION On exam the patient was intubated and sedated with propofol. Intermittently she would have some relatively mild myoclonus versus posturing movements of the upper extremities. She had just finished the EEG study. Upon somatosensory stimulation she did have some mild withdrawal. The pupils were small bilaterally and the eyes were in primary position. No obvious facial weakness. She had present but diminished reflexes and plantar responses were extensor bilaterally. ASSESSMENT Acute neurologic change/a stroke alert called. She had an obvious seizure after that and the initial event might have been a seizure as well. An EEG will be reviewed as it was already completed. She will have CT or MRI brain in followup. Dilantin was given and this is to be continued. Will check a level. We will arrange for a carotid ultrasound, lipid profile and I will follow the neurological course. Thank you for asking us to assist in her care. MD YASH York/ALLISONL /7:19 PM /8:02 AM
--- NOTE | 2017-02-27 14:08 | HHI.PR ---
Review/Management Daily Summary 02/26 more responsive and was following some commands when sedation held per RN withdrel to stim appropriately pupilssl reactive, os sl larger continue dilantin as is dx likely seizure/new onset Subjective Subjective Comments No new events reported Active Medications Current Medications Medications (Trade) Dose Ordered Sig/Archie Route Start Time Stop Time Status Last Admin (Diprivan 1000 Mg/100ml Inj) 100 ml @ 0 mls/hr TITRATE IV 02/26/17 14:45 02/27/17 05:52 Labetalol HCl 10 mg 10 mg Q2H PRN IV 02/26/17 16:30 (Cardene Inj/NS 250 ml Inj) 260 ml @ 0 mls/hr TITRATE IV 02/26/17 16:30 (Aspirin Chew) 162 mg DAILY PO 02/27/17 09:00 02/27/17 08:09 (Pravachol) 40 mg HS PO 02/26/17 21:00 02/26/17 20:17 Insulin Aspart 1 1 ACHS SQ 02/26/17 21:00 (NS 1000 ml Inj) 1,000 ml @ 84 mls/hr [id number] IV 02/26/17 16:20 02/27/17 01:57 (NS Flush) 2 ml UNSCH PRN IV FLUSH 02/26/17 16:30 (NS Flush) 2 ml BID IV FLUSH 02/26/17 21:00 02/27/17 08:10 (Tylenol) 650 mg Q6H PRN PO 02/26/17 16:30 (Protonix Inj) 40 mg DAILY IV 02/27/17 09:00 02/27/17 08:07 (Tears Naturale Opth Soln) 1 drop TID EACH EYE 02/26/17 18:00 02/27/17 08:10 (Zofran Inj) 4 mg Q6H PRN IV 02/26/17 16:30 (Heparin Inj) 5,000 units Q12H SQ 02/26/17 18:00 02/27/17 05:02 Miscellaneous Information 1 [id number] XX 02/26/17 16:30 02/26/17 16:30 (Chlorhexidine 2% Cloth) 3 pack Taper DAILY@04 TOP 02/27/17 04:00 02/23/18 03:59 02/27/17 03:11 (Chlorhexidine 2% Cloth) 3 pack UNSCH PRN TOP 02/26/17 16:30 (Marisela-Colace) 1 tab BID PO 02/26/17 21:00 02/26/17 21:00 (Milk Of Magnesia Liq) 30 ml Q12H PRN PO 02/26/17 16:30 (Senokot) 17.2 mg Q12H PRN PO 02/26/17 16:30 (Dulcolax Supp) 10 mg DAILY PRN RECTAL 02/26/17 16:30 Lactulose 30 ml 30 ml DAILY PRN PO 02/26/17 16:30 (Diprivan 1000 Mg/100ml Inj) 100 ml @ 0 mls/hr TITRATE IV 02/26/17 16:30 (Peridex 0.12% Liq) 15 ml BID@08,20 MT 02/26/17 20:00 02/27/17 08:10 (D50w (Vial) Inj) 50 ml UNSCH PRN IV 02/26/17 16:30 (Glucagon Inj) 1 mg UNSCH PRN OTHER 02/26/17 16:30 (Dilantin Inj) 100 mg Q8HR IV 02/26/17 22:00 02/27/17 05:03 Levothyroxine Sodium 50 mcg 50 mcg DAILY@06 PO 02/27/17 06:00 02/27/17 05:03 (Zosyn 4.5 Gm Premix) 100 ml @ 200 mls/hr Q8H IV 02/26/17 20:00 02/27/17 03:23 Allergies Allergies Coded Allergies Hydrocodone (Verified Allergy, Severe, HALLUCINATIONS, 02/26/17) Exam I&O / VS 02/26/17 02/26/17 02/27/17 15:00 23:00 07:00 Intake Total 612 ml 936 ml Output Total 1775 ml 850 ml Balance -1163 ml 86 ml Intake IV Total 552 ml 876 ml Other 60 ml 60 ml Output Urine Total 1675 ml 700 ml Gastric Drainage Total 100 ml 150 ml # Bowel Movements 0 0 Vital Signs Date Time Temp Pulse Resp B/P Pulse Ox O2 Delivery O2 Flow Rate FiO2 02/27/17 10:54 100 45 02/27/17 10:00 56 02/27/17 08:00 97.6 65 17 134/61 99 02/27/17 08:00 65 02/27/17 08:00 45 02/27/17 07:28 99 45 02/27/17 07:00 99 Mechanical Ventilator 40 02/27/17 06:00 54 02/27/17 04:00 56 02/27/17 04:00 45 02/27/17 04:00 97.9 56 16 134/62 99 02/27/17 03:23 95 45 02/27/17 02:00 56 02/27/17 01:41 99 45 02/27/17 00:00 45 02/27/17 00:00 97.6 64 14 153/68 98 02/27/17 00:00 64 02/26/17 22:03 99 45 02/26/17 22:00 58 02/26/17 21:00 98 100 02/26/17 20:00 45 02/26/17 20:00 98.1 66 14 129/58 100 02/26/17 20:00 66 02/26/17 19:44 99 45 02/26/17 19:00 99 Mechanical Ventilator 45 02/26/17 18:00 64 02/26/17 17:46 99 45 02/26/17 16:00 50 02/26/17 16:00 62 02/26/17 16:00 97.8 81 14 130/79 96 02/26/17 15:50 100 100 02/26/17 15:31 82 132/78 97 Ventilator 02/26/17 14:50 72 165/77 99 Ventilator 02/26/17 14:41 83 12 141/67 100 Ventilator 100 02/26/17 14:39 50 02/26/17 14:37 98 50 02/26/17 14:32 158/106 02/26/17 14:20 80 26 184/78 99 Nasal Cannula 3 02/26/17 14:10 81 26 167/77 99 Nasal Cannula 3 02/26/17 14:10 96 Nasal Cannula 3 02/26/17 14:04 97 Nasal Cannula 4.00 02/26/17 14:04 97 4.00 Objective Radiology Results Last 48 hours Impressions Chest X-Ray 02/27/17 0000 Signed Impressions: Service Date/Time: Monday, February 27, 2017 03:46 - CONCLUSION: No acute disease. Josh Reyes MD Chest X-Ray 02/26/17 1440 Signed Impressions: Service Date/Time: Sunday, February 26, 2017 15:02 - CONCLUSION: 1. Nasogastric tube tip in distal esophagus. This is not seen to enter the stomach. 2. Endotracheal tube in satisfactory position. 3. Remote compression deformity lower thoracic spine status post kyphoplasty. 4. No lung consolidation or pleural effusion identified. Virgilio Marcum MD Neck Magnetic Resonance Angiography 02/26/17 0000 Signed Impressions: Service Date/Time: Sunday, February 26, 2017 21:07 - CONCLUSION: Moderate stenosis at the proximal left internal carotid artery with approximately 50%% narrowing of the lumen at this level. Jeff Sheppard MD Head Magnetic Resonance Angiography 02/26/17 0000 Signed Impressions: Service Date/Time: Sunday, February 26, 2017 21:07 - CONCLUSION: No acute disease. Jeff Sheppard MD Head CT 02/26/17 0000 Signed Impressions: Service Date/Time: Sunday, February 26, 2017 14:08 - CONCLUSION: 1. White matter ischemic changes. No acute intracranial abnormality. Virgilio Marcum MD Brain MRI 02/26/17 0000 Signed Impressions: Service Date/Time: Sunday, February 26, 2017 21:07 - CONCLUSION: 1. No acute abnormality seen. 2. Age-related atrophy. 3. Suspected small vessel ischemic changes in the white matter. Jeff Sheppard MD Micro and Labs Laboratory Tests Test 02/26/17 02/26/17 02/26/17 02/26/17 14:08 16:00 16:37 20:15 Bedside Hemoglobin 15.0 Bedside Hematocrit 44.0 Prothrombin Time 10.9 Prothromb Time International 1.0 Ratio Activated Partial 22.3 25.1 Thromboplast Time Fibrinogen 374 374 Bedside Sodium 138 Bedside Potassium 4.3 Bedside Chloride 103 Bedside Blood Urea Nitrogen 18 Bedside Creatinine 0.8 Bedside Glucose 120 Total Creatine Kinase 36 Troponin I LESS THAN 0.02 Human Chorionic Gonadotropin, 4 Quant Blood Type A NEGATIVE Antibody Screen NEGATIVE Blood Bank Comment White Blood Count 13.7 Red Blood Count 4.58 Hemoglobin 13.8 Hematocrit 41.7 Mean Corpuscular Volume 91.2 Mean Corpuscular Hemoglobin 30.0 Mean Corpuscular Hemoglobin 33.0 Concent Red Cell Distribution Width 14.4 Platelet Count 210 Mean Platelet Volume 8.8 Neutrophils (%) (Auto) 33.8 Lymphocytes (%) (Auto) 58.0 Monocytes (%) (Auto) 6.3 Eosinophils (%) (Auto) 1.5 Basophils (%) (Auto) 0.4 Neutrophils # (Auto) 4.6 Lymphocytes # (Auto) 8.0 Monocytes # (Auto) 0.9 Eosinophils # (Auto) 0.2 Basophils # (Auto) 0.1 CBC Comment AUTO DIFF Differential Comment AUTO DIFF CONFIRMED Platelet Estimate NORMAL Platelet Morphology Comment NORMAL Nasal Screen MRSA (PCR) MRSA NOT DETECTED Blood Gas Puncture Site RT RADIAL Blood Gas Patient Temperature 98.6 Blood Gas HCO3 23 Blood Gas Base Excess -0.6 Blood Gas Oxygen Saturation 97 Arterial Blood pH 7.42 Arterial Blood Partial 37 Pressure CO2 Arterial Blood Partial 150 Pressure O2 Arterial Blood Oxygen Content 18.4 Arterial Blood 0.9 Carboxyhemoglobin Arterial Blood Methemoglobin 1.0 Blood Gas Hemoglobin 13.3 Oxygen Delivery Device VENTILATOR Blood Gas Ventilator Setting PRVC/AC Blood Gas Inspired Oxygen 50 Test 02/26/17 02/27/17 02/27/17 02/27/17 20:35 00:10 03:37 04:28 Sodium Level 138 136 Potassium Level 3.6 3.9 Chloride Level 101 101 Carbon Dioxide Level 28.5 26.1 Anion Gap 9 9 Blood Urea Nitrogen 14 12 Creatinine 0.78 0.66 Estimat Glomerular Filtration 70 85 Rate Random Glucose 114 104 Calcium Level 8.8 8.4 Phosphorus Level 3.0 2.8 Magnesium Level 1.9 1.7 Total Bilirubin 0.6 0.9 Aspartate Amino Transf 28 35 (AST/SGOT) Alanine Aminotransferase 17 17 (ALT/SGPT) Alkaline Phosphatase 74 70 Total Creatine Kinase 74 Troponin I 0.03 Total Protein 6.9 6.9 Albumin 3.4 3.2 Lipase 104 Thyroid Stimulating Hormone 1.990 3rd Gen Phenytoin (Dilantin) Level 13.2 14.2 Urine Color LIGHT-YELLOW Urine Turbidity HAZY Urine pH 7.5 Urine Specific Trufant 1.011 Urine Protein NEG Urine Glucose (UA) NEG Urine Ketones TRACE Urine Occult Blood NEG Urine Nitrite NEG Urine Bilirubin NEG Urine Urobilinogen LESS THAN 2.0 Urine Leukocyte Esterase TRACE Urine RBC 2 Urine WBC 9 Urine Squamous Epithelial <1 Cells Urine Bacteria RARE Urine Mucus FEW Microscopic Urinalysis Comment Urine Opiates Screen NEG Urine Barbiturates Screen NEG Urine Amphetamines Screen NEG Urine Benzodiazepines Screen NEG Urine Cocaine Screen NEG Urine Cannabinoids Screen NEG Prothrombin Time 11.3 Prothromb Time International 1.0 Ratio Lactic Acid Level 2.8 Triglycerides Level 86 Cholesterol Level 235 LDL Cholesterol 138 HDL Cholesterol 80.3 Cholesterol/HDL Ratio 2.92 White Blood Count 14.3 Red Blood Count 4.66 Hemoglobin 13.7 Hematocrit 42.2 Mean Corpuscular Volume 90.6 Mean Corpuscular Hemoglobin 29.5 Mean Corpuscular Hemoglobin 32.5 Concent Red Cell Distribution Width 15.0 Platelet Count 166 Mean Platelet Volume 8.7 Neutrophils (%) (Auto) 65.0 Lymphocytes (%) (Auto) 23.7 Monocytes (%) (Auto) 10.3 Eosinophils (%) (Auto) 0.8 Basophils (%) (Auto) 0.2 Neutrophils # (Auto) 9.3 Lymphocytes # (Auto) 3.4 Monocytes # (Auto) 1.5 Eosinophils # (Auto) 0.1 Basophils # (Auto) 0.0 CBC Comment DIFF FINAL Differential Comment Date/Time Procedure Status Source Growth 02/27/17 03:20 Gram Stain - Final Resulted Sputum Expectorated Sputum 02/27/17 03:20 Sputum Culture Resulted Sputum Expectorated Sputum Pending 02/27/17 00:10 Cancelled Urine Clean Catch Karyn Sanchez MD Feb 27, 2017 14:08
--- NOTE | 2017-02-27 14:11 | EKG ---
Date Performed: 02/26/2017 Time Performed: 15:06:02 PTAGE: 86 years EKG: Sinus rhythm MARKED LEFT AXIS DEVIATION POSSIBLE RIGHT VENTRICULAR CONDUCTION DELAY ABNORMAL ECG PREVIOUS TRACING : 10/08/2015 12.00 Since previous tracing, no significant change noted DOCTOR: Amari Carter Interpretating Date/Time 02/27/2017 14:30:59
--- NOTE | 2017-02-27 14:13 | EKG ---
Date Performed: 02/26/2017 Time Performed: 16:33:18 PTAGE: 86 years EKG: Sinus rhythm MARKED LEFT AXIS DEVIATION POSSIBLE RIGHT VENTRICULAR CONDUCTION DELAY ABNORMAL ECG Compared to prio r tracing no significant change PREVIOUS TRACING : 02/26/2017 15.06 DOCTOR: Amari Carter Interpretating Date/Time 02/27/2017 14:11:16
--- NOTE | 2017-02-27 15:12 | HHI.CCPN ---
Subjective Remarks/Hospital Course 02/26: 86-year-old female. Full code. Patient is a resident of [facility] assisted living. She has a living will stating that she does not want to be kept on prolonged life support however at the present time she is a full code. Patient presented to [facility] for the following history. She has history of dementia, depression, gastroesophageal reflux disease, COPD, hypothyroidism, osteoarthritis/osteoporosis, compression fractures, hypertension , dyslipidemia, chronic lower extremity edema and chronic pain syndrome. According to records, at 1:30 PM patient became unresponsive and was taken the floor lightly by assistance at her living facility. Unknown if she struck her head. Her GCS score was documented as 3 for approximately 15 minutes later she became more responsive. She is transferred to [facility] for further evaluation treatment. A stroke alert was called. BMP was unremarkable. CBC showed a leukocytosis. CT head showed white matter ischemic changes otherwise unremarkable. In CAT scan patient was noted to have a generalized tonic-clonic seizures unknown duration with questionable aspiration and after which, patient received received 20 mg etomidate 100 mg of succinylcholine was intubated by ED physician. Dr. Sanchez/neurology was contacted. Due to patient's age and NIH of 30 not a candidate for TPA. MRI/MRA brain/neck was negative for ischemia. 02/27: Remains sedated, orally intubated on mechanical ventilation. Arouses off sedation. Objective Vital Signs Date Time Temp Pulse Resp B/P Pulse Ox O2 Delivery O2 Flow Rate FiO2 02/27/17 10:54 100 45 02/27/17 10:00 56 02/27/17 08:00 97.6 17 134/61 02/27/17 07:00 Mechanical Ventilator 02/26/17 14:20 3 Intake and Output 02/26/17 02/26/17 02/27/17 08:00 16:00 00:00 Intake Total 612 ml Output Total 1775 ml Balance -1163 ml Result Diagram: 02/27/17 0428 02/27/17 0337 Other Results Laboratory Tests Test 02/26/17 16:37 Blood Gas Puncture Site RT RADIAL Blood Gas Patient Temperature 98.6 Blood Gas HCO3 23 mmol/L (22-26) Blood Gas Base Excess -0.6 mmol/L (-2-2) Blood Gas Oxygen Saturation 97 % (90-100) Arterial Blood pH 7.42 (7.380-7.420) Arterial Blood Partial 37 mmHg (38-42) Pressure CO2 Arterial Blood Partial 150 mmHg Pressure O2 (61-120) Arterial Blood Oxygen Content 18.4 Vol % (12.0-20.0) Arterial Blood 0.9 % (0-4) Carboxyhemoglobin Arterial Blood Methemoglobin 1.0 % (0-2) Blood Gas Hemoglobin 13.3 G/DL (12.0-16.0) Oxygen Delivery Device VENTILATOR Blood Gas Ventilator Setting PRVC/AC Blood Gas Inspired Oxygen 50 % Imaging Last Impressions Chest X-Ray 02/26/17 1440 Signed Impressions: Service Date/Time: Sunday, February 26, 2017 15:02 - CONCLUSION: 1. Nasogastric tube tip in distal esophagus. This is not seen to enter the stomach. 2. Endotracheal tube in satisfactory position. 3. Remote compression deformity lower thoracic spine status post kyphoplasty. 4. No lung consolidation or pleural effusion identified. Virgilio Marcum MD Head CT 02/26/17 0000 Signed Impressions: Service Date/Time: Sunday, February 26, 2017 14:08 - CONCLUSION: 1. White matter ischemic changes. No acute intracranial abnormality. Virgilio Marcum MD Objective Remarks GENERAL: 86 year old female, currently orotracheally intubated, laying in bed on mechanical ventilation SKIN: Warm and dry. No rash HEAD: Atraumatic. Normocephalic. EYES: Right pupil is 3 mm instructed 2 mm with light. Left pupil is sluggish but reactive. Fixed gaze. ENT: No nasal bleeding or discharge. Mucous membranes pink and moist. Obvious trauma to left lateral aspect of tongue. NECK: Trachea midline. No JVD. CARDIOVASCULAR: Regular rate and rhythm. S1, S2. No S4. Without murmur RESPIRATORY:Clear to auscultation. Breath sounds equal bilaterally. GASTROINTESTINAL: Abdomen soft, non-tender, nondistended. Hypoactive bowel sounds are appreciated MUSCULOSKELETAL: Extremities with 1+ nonpitting lower extremity edema. NEUROLOGICAL: Sedated, arousable, orally intubated on mechanical ventilation Pupils as above. Moving right upper extremity spontaneously. Extending left upper and lower extremes. Upward toes bilaterally. 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 Dr. Sanchez notified. Recommended no alteplase secondary to patient's advanced age and NIH score 30. EEG ordered currently undergoing MRI brain/MRA brain/neck negative for ischemia Loaded with fosphenytoin 1 g IV 1. Currently 100 mg 3 times a day. Check phenytoin level 2-D echocardiogram ordered. Check lipids/hemoglobin A1c Continue with aspirin 162 mg by tube daily. Holding Xanax 0.25 mg as needed for anxiety Holding denies a pill 10 mg by mouth daily. Resp: Acute respiratory failure Asthma/COPD PRVC 14/tidal volume around 450/1/5/50 Ventilator bundle Due nebs every 6 hours with albuterol every 2 hours when necessary Chest x-ray revealed no acute pulmonary findings. C Pap trials to decide extubation. CV: Hypertension Dyslipidemia Chronic lower extremity lymphedema Resume Inderal home dose 80 mg daily 2-D echocardiogram/EKG ordered. Troponin pending. As needed labetalol/Cardene drip to keep systolic blood pressure less than 220. Holding Lasix 20 mg by mouth daily and potassium chloride 8 mEq by mouth daily. GI: Gastroesophageal reflux disease Chronic constipation Orogastric tube to low intermittent wall suction Protonix for GI prophylaxis. On Prilosec 20 mg by mouth daily at home. Marisela-Colace for bowel regimen : Coronel catheter for accurate I's and O's in a critically ill patient Endo: Hypothyroidism Continue Levoxyl 50 mg by tube daily. Check TSH Sliding-scale insulin with Accu checks every 6 hours to maintain euglycemia/low regimen. Check hemoglobin A1c Renal: Creatinine currently 0.8. Accurate I's and O's Monitor urine output Heme: Leukocytosis Monitor CBC daily. Monitor trends Follow-up on coags ID: Monitor for infection On Zosyn for likely aspiration pneumonia Sputum ordered FEN: Replace electrolytes as clinically indicated MSK: History of cervical/thoracic compression fractures Osteoporosis/osteoarthritis Physical therapy evaluate and treat Continue calcium vitamin D and vitamin D 3. Access - Utilize peripheral IV. Central line if indicated Prophylaxis - GI - Protonix - DVT - SCD/heparin subcutaneous Discussed with patient's daughter at bedside regarding current clinical status and plan of care and she voiced understanding and were agreeable. Critical Care: The total critical care time was 35 minutes. Time to perform other separately billable procedures was not included in the critical care time. Charlie Ch MD Feb 27, 2017 15:12
[2017-02-27 21:57] LABS: HEMOGLOBIN A1a 1.3 %; HEMOGLOBIN A1b 0.8 %; HEMOGLOBIN Ao 85.3 %; HEMOGLOBIN F 1.1 %; HEMOGLOBIN LA1C 1.5 %; HEMOGLOBIN P3 3.9 %
[2017-02-27] MEDS: PRAVASTATIN SOD 40 MG TAB PO SCH (21:59)
[2017-02-28] VITALS (10 sets, daily range): BP systolic 137–172; BP diastolic 62–72; PULSE 75–100; RESP 16–26; TEMP 96.9–98.6; O2SAT 90–99
[2017-02-28] MEDS: CHLORHEXIDINE GLUCONATE 2 % 1 PACK (2 CLOTHS) TOP SCH (04:00)
[2017-02-28] MEDS: RESP: ALBUTEROL 2.5 MG/IPRATROPIUM 0.5 MG NEB (SCH) INH ×4 (04:00→20:21)
[2017-02-28] MEDS: PIPERACIL-TAZO 4.5 GM PREMIX 100 ML IV SCH ×3 (04:52→21:34)
[2017-02-28] MEDS: SODIUM CHLOR 0.9% 1000 ML INJ 1,000 ML IV SCH (04:52)
[2017-02-28] MEDS: LEVOTHYROXINE SODIUM 50 MCG TAB PO SCH (05:58)
[2017-02-28] MEDS: HEPARIN SODIUM - SQ 10,000 UNITS/ML VIAL SQ SCH ×2 (05:58→17:26)
[2017-02-28] MEDS: PHENYTOIN INJ 100 MG/2 ML VIAL IV SCH (05:58)
[2017-02-28] MEDS: INSULIN ASPART SUPPLEMENTAL SCALE SQ SCH (07:00)
[2017-02-28] MEDS: CHLORHEXIDINE 0.12% (ORAL KIT) 15 ML CUP MT SCH ×2 (08:50→20:00)
[2017-02-28] MEDS: ASPIRIN 81 MG CHEW TAB PO SCH (08:50)
[2017-02-28] MEDS: PANTOPRAZOLE SODIUM 40 MG VIAL IV SCH (08:51)
[2017-02-28] MEDS: DOCUSATE SODIUM 50 MG/SENNA 8.6 MG TAB PO SCH ×2 (08:51→21:00)
[2017-02-28] MEDS: SODIUM CHLORIDE 0.9% FLUSH 10 ML FLUSH IV FLUSH SCH ×2 (08:51→21:32)
[2017-02-28] MEDS: ARTIFICIAL TEARS OPTH SOLN 15 ML BTL EACH EYE SCH ×3 (08:51→17:26)
--- NOTE | 2017-02-28 09:26 | HHI.CCPN ---
Subjective Remarks/Hospital Course 02/26: 86-year-old female. Full code. Patient is a resident of [facility] assisted [facility]. She has a living will stating that she does not want to be kept on prolonged life support however at the present time she is a full code. Patient presented to [facility] for the following history. She has history of dementia, depression, gastroesophageal reflux disease, COPD, hypothyroidism, osteoarthritis/osteoporosis, compression fractures, hypertension , dyslipidemia, chronic lower extremity edema and chronic pain syndrome. According to records, at 1:30 PM patient became unresponsive and was taken the floor lightly by assistance at her living facility. Unknown if she struck her head. Her GCS score was documented as 3 for approximately 15 minutes later she became more responsive. She is transferred to [facility] for further evaluation treatment. A stroke alert was called. BMP was unremarkable. CBC showed a leukocytosis. CT head showed white matter ischemic changes otherwise unremarkable. In CAT scan patient was noted to have a generalized tonic-clonic seizures unknown duration with questionable aspiration and after which, patient received received 20 mg etomidate 100 mg of succinylcholine was intubated by ED physician. Dr. Sanchez/neurology was contacted. Due to patient's age and NIH of 30 not a candidate for TPA. MRI/MRA brain/neck was negative for ischemia. 02/27: Remains sedated, orally intubated on mechanical ventilation. Arouses off sedation. 02/28: Extubated yesterday. Doing well on nasal cannula. Awake and alert. No further seizures. Objective Vital Signs Date Time Temp Pulse Resp B/P Pulse Ox O2 Delivery O2 Flow Rate FiO2 02/28/17 08:13 90 21 02/28/17 06:00 77 02/28/17 04:00 98.6 20 162/69 02/27/17 19:58 Nasal Cannula 3.00 Intake and Output 02/27/17 02/27/17 02/28/17 08:00 16:00 00:00 Intake Total 936 ml 928 ml 674 ml Output Total 850 ml 1650 ml 350 ml Balance 86 ml -722 ml 324 ml Result Diagram: 02/27/17 0428 02/27/17 0337 Imaging Last Impressions Chest X-Ray 02/26/17 1440 Signed Impressions: Service Date/Time: Sunday, February 26, 2017 15:02 - CONCLUSION: 1. Nasogastric tube tip in distal esophagus. This is not seen to enter the stomach. 2. Endotracheal tube in satisfactory position. 3. Remote compression deformity lower thoracic spine status post kyphoplasty. 4. No lung consolidation or pleural effusion identified. Virgilio Marcum MD Head CT 02/26/17 0000 Signed Impressions: Service Date/Time: Sunday, February 26, 2017 14:08 - CONCLUSION: 1. White matter ischemic changes. No acute intracranial abnormality. Virgilio Marcum MD Objective Remarks GENERAL: 86 year old female, laying in bed on nasal cannula SKIN: Warm and dry. No rash HEAD: Atraumatic. Normocephalic. EYES: Pupils 3 mm bilaterally, reactive ENT: No nasal bleeding or discharge. Mucous membranes pink and moist. Obvious trauma to left lateral aspect of tongue. NECK: Trachea midline. No JVD. CARDIOVASCULAR: Regular rate and rhythm. S1, S2. No S4. Without murmur RESPIRATORY:Clear to auscultation. Breath sounds equal bilaterally. GASTROINTESTINAL: Abdomen soft, non-tender, nondistended. Hypoactive bowel sounds are appreciated MUSCULOSKELETAL: Extremities with 1+ nonpitting lower extremity edema. NEUROLOGICAL: Awake and alert. Following commands. Moves all 4 extremities though has decreased mobility in right upper extremity. A/P Assessment and Plan Neuro/Psych: Seizure Right facial droop/unresponsiveness of NH score 30 Dementia disorder not otherwise specified Depression Chronic benzodiazepine use CT head 02/26 revealed chronic white matter ischemic changes and findings. Dr. Sanchez notified. Recommended no alteplase secondary to patient's advanced age and NIH score 30. MRI brain/MRA brain/neck negative for ischemia Loaded with fosphenytoin 1 g IV 1. Currently 100 mg 3 times a day. Check phenytoin level 2-D echocardiogram ordered. Check lipids/hemoglobin A1c Continue with aspirin 162 mg by tube daily. Extubated on 02/27. No further seizures. Holding Xanax 0.25 mg as needed for anxiety Holding denies a pill 10 mg by mouth daily. Resp: Acute respiratory failure Asthma/COPD Extubated on 02/27, on nasal cannula. Titrate off O2 as tolerated. Due nebs every 6 hours with albuterol every 2 hours when necessary Chest x-ray revealed no acute pulmonary findings. CV: Hypertension Dyslipidemia Chronic lower extremity lymphedema Resume Inderal home dose 80 mg daily 2-D echocardiogram/EKG ordered. Troponin pending. As needed labetalol/Cardene drip to keep systolic blood pressure less than 220. Holding Lasix 20 mg by mouth daily and potassium chloride 8 mEq by mouth daily. GI: Gastroesophageal reflux disease Chronic constipation Orogastric tube to low intermittent wall suction Protonix for GI prophylaxis. On Prilosec 20 mg by mouth daily at home. Marisela-Colace for bowel regimen : Coronel catheter for accurate I's and O's in a critically ill patient Endo: Hypothyroidism Continue Levoxyl 50 mg by tube daily. Check TSH Sliding-scale insulin with Accu checks every 6 hours to maintain euglycemia/low regimen. Check hemoglobin A1c Renal: Follow intake output, monitor and replete electrolytes, follow BUN/creatinine. Heme: Leukocytosis Monitor CBC daily. Monitor trends Follow-up on coags ID: Monitor for infection On Zosyn for likely aspiration pneumonia Sputum ordered FEN: Replace electrolytes as clinically indicated MSK: History of cervical/thoracic compression fractures Osteoporosis/osteoarthritis Physical therapy evaluate and treat Continue calcium vitamin D and vitamin D 3. Access - Utilize peripheral IV. Central line if indicated Prophylaxis - GI - Protonix - DVT - SCD/heparin subcutaneous Discussed with patient's daughter at bedside regarding current clinical status and plan of care and she voiced understanding and were agreeable. Patient will be transferred to hospitalist service for further medical management. Transfer out of ICU. Further recommendations per neurology Charlie Ch MD Feb 28, 2017 09:26
[2017-02-28] MEDS: PROPRANOLOL HCL 80 MG TAB PO SCH (12:05)
--- NOTE | 2017-02-28 12:26 | HHI.PR ---
Review/Management Daily Summary 02/26 more responsive and was following some commands when sedation held per RN withdrel to stim appropriately pupilssl reactive, os sl larger continue dilantin as is dx likely seizure/new onset 02/28 extubated and conversant confused as she thinks she is in [facility] moves all limbs, pleasant and follows all commands switch to po dilantin Subjective Subjective Comments No acute events reported No headache No chest pain No dyspnea Active Medications Current Medications Medications (Trade) Dose Ordered Sig/Archie Route Start Time Stop Time Status Last Admin (Trandate Inj) 10 mg Q2H PRN IV 02/26/17 16:30 (Aspirin Chew) 162 mg DAILY PO 02/27/17 09:00 02/28/17 08:50 (Pravachol) 40 mg HS PO 02/26/17 21:00 02/27/17 21:59 (NS Flush) 2 ml UNSCH PRN IV FLUSH 02/26/17 16:30 (NS Flush) 2 ml BID IV FLUSH 02/26/17 21:00 02/28/17 08:51 (Tylenol) 650 mg Q6H PRN PO 02/26/17 16:30 (Protonix Inj) 40 mg DAILY IV 02/27/17 09:00 02/28/17 08:51 (Tears Naturale Opth Soln) 1 drop TID EACH EYE 02/26/17 18:00 02/28/17 12:05 (Zofran Inj) 4 mg Q6H PRN IV 02/26/17 16:30 (Heparin Inj) 5,000 units Q12H SQ 02/26/17 18:00 02/28/17 05:58 Miscellaneous Information 1 Q361D XX 02/26/17 16:30 02/26/17 16:30 (Chlorhexidine 2% Cloth) 3 pack Taper DAILY@04 TOP 02/27/17 04:00 02/23/18 03:59 02/28/17 04:00 (Chlorhexidine 2% Cloth) 3 pack UNSCH PRN TOP 02/26/17 16:30 (Marisela-Colace) 1 tab BID PO 02/26/17 21:00 02/28/17 08:51 (Milk Of Magnesia Liq) 30 ml Q12H PRN PO 02/26/17 16:30 (Senokot) 17.2 mg Q12H PRN PO 02/26/17 16:30 (Dulcolax Supp) 10 mg DAILY PRN RECTAL 02/26/17 16:30 Lactulose 30 ml 30 ml DAILY PRN PO 02/26/17 16:30 (Diprivan 1000 Mg/100ml Inj) 100 ml @ 0 mls/hr TITRATE IV 02/26/17 16:30 (Peridex 0.12% Liq) 15 ml BID@08,20 MT 02/26/17 20:00 02/28/17 08:50 (D50w (Vial) Inj) 50 ml UNSCH PRN IV 02/26/17 16:30 (Glucagon Inj) 1 mg UNSCH PRN OTHER 02/26/17 16:30 Levothyroxine Sodium 50 mcg 50 mcg DAILY@06 PO 02/27/17 06:00 02/28/17 05:58 (Zosyn 4.5 Gm Premix) 100 ml @ 200 mls/hr Q8H IV 02/26/17 20:00 02/28/17 12:05 (Aricept) 10 mg HS PO 02/28/17 21:00 (Inderal) 80 mg DAILY PO 02/28/17 11:00 02/28/17 12:05 (Dilantin) 100 mg TID PO 02/28/17 13:00 Allergies Allergies Coded Allergies Hydrocodone (Verified Allergy, Severe, HALLUCINATIONS, 02/26/17) Exam I&O / VS 02/27/17 02/27/17 02/28/17 15:00 23:00 07:00 Intake Total 928 ml 674 ml 612 ml Output Total 1650 ml 350 ml 400 ml Balance -722 ml 324 ml 212 ml Intake IV Total 868 ml 674 ml 612 ml Other 60 ml Output Urine Total 1650 ml 350 ml 400 ml Vital Signs Date Time Temp Pulse Resp B/P Pulse Ox O2 Delivery O2 Flow Rate FiO2 02/28/17 08:13 90 21 02/28/17 08:00 98.2 84 23 157/69 91 02/28/17 08:00 84 02/28/17 07:00 91 Nasal Cannula 2.00 02/28/17 06:00 77 02/28/17 04:00 83 02/28/17 04:00 98.6 83 20 162/69 98 02/28/17 02:00 80 02/28/17 00:00 97.6 95 16 156/72 96 02/28/17 00:00 95 02/27/17 22:00 106 02/27/17 20:00 97.4 106 22 139/69 94 02/27/17 20:00 106 02/27/17 19:58 93 Nasal Cannula 3.00 02/27/17 19:00 96 Nasal Cannula 2.00 02/27/17 18:00 93 02/27/17 16:24 95 Nasal Cannula 3 02/27/17 16:08 40 02/27/17 16:00 98.1 90 18 161/71 99 02/27/17 16:00 45 02/27/17 16:00 84 02/27/17 14:00 72 Objective Radiology Results Last 48 hours Impressions Chest X-Ray 02/27/17 0000 Signed Impressions: Service Date/Time: Monday, February 27, 2017 03:46 - CONCLUSION: No acute disease. Josh Reyes MD Chest X-Ray 02/26/17 1440 Signed Impressions: Service Date/Time: Sunday, February 26, 2017 15:02 - CONCLUSION: 1. Nasogastric tube tip in distal esophagus. This is not seen to enter the stomach. 2. Endotracheal tube in satisfactory position. 3. Remote compression deformity lower thoracic spine status post kyphoplasty. 4. No lung consolidation or pleural effusion identified. Virgilio Marcum MD Micro and Labs Date/Time Procedure Status Source Growth 02/27/17 03:20 Gram Stain - Final Resulted Sputum Expectorated Sputum 02/27/17 03:20 Sputum Culture Resulted Sputum Expectorated Sputum Pending 02/27/17 00:10 Cancelled Urine Clean Catch Karyn Sanchez MD Feb 28, 2017 12:25
[2017-02-28] MEDS: PHENYTOIN SODIUM 100 MG CAP PO SCH ×2 (14:25→17:26)
[2017-02-28] MEDS: DONEPEZIL HCL 5 MG TAB PO SCH (21:32)
[2017-02-28] MEDS: PRAVASTATIN SOD 40 MG TAB PO SCH (21:32)
[2017-03-01] VITALS (11 sets, daily range): BP systolic 133–182; BP diastolic 63–88; PULSE 67–93; RESP 18–22; TEMP 95.3–97.1; O2SAT 90–100
[2017-03-01] MEDS: CHLORHEXIDINE GLUCONATE 2 % 1 PACK (2 CLOTHS) TOP SCH ×2 (04:00→20:49)
[2017-03-01] MEDS: RESP: ALBUTEROL 2.5 MG/IPRATROPIUM 0.5 MG NEB (SCH) INH ×4 (04:25→21:19)
[2017-03-01] MEDS: PIPERACIL-TAZO 4.5 GM PREMIX 100 ML IV SCH ×3 (04:57→20:49)
[2017-03-01] MEDS: LEVOTHYROXINE SODIUM 50 MCG TAB PO SCH (05:00)
[2017-03-01] MEDS: HEPARIN SODIUM - SQ 10,000 UNITS/ML VIAL SQ SCH ×2 (05:01→17:09)
[2017-03-01] MEDS: CHLORHEXIDINE 0.12% (ORAL KIT) 15 ML CUP MT SCH ×2 (07:36→20:00)
[2017-03-01] MEDS: PHENYTOIN SODIUM 100 MG CAP PO SCH ×3 (07:37→17:09)
[2017-03-01] MEDS: DOCUSATE SODIUM 50 MG/SENNA 8.6 MG TAB PO SCH ×2 (07:37→20:48)
[2017-03-01] MEDS: ASPIRIN 81 MG CHEW TAB PO SCH (07:38)
[2017-03-01] MEDS: ARTIFICIAL TEARS OPTH SOLN 15 ML BTL EACH EYE SCH ×3 (07:38→14:46)
[2017-03-01] MEDS: SODIUM CHLORIDE 0.9% FLUSH 10 ML FLUSH IV FLUSH SCH ×2 (07:38→20:49)
[2017-03-01] MEDS: PROPRANOLOL HCL 80 MG TAB PO SCH (07:38)
[2017-03-01] MEDS: PANTOPRAZOLE SODIUM 40 MG VIAL IV SCH (07:38)
--- NOTE | 2017-03-01 12:18 | HHI.PR ---
Review/Management Daily Summary 02/26 more responsive and was following some commands when sedation held per RN withdrel to stim appropriately pupilssl reactive, os sl larger continue dilantin as is dx likely seizure/new onset 02/28 extubated and conversant confused as she thinks she is in [facility] moves all limbs, pleasant and follows all commands switch to po dilantin 03/01 doing well and wanting to go home expressing herself well continue dilantin, has level today can be seen in the office in 2-3 weeks i will sign off Subjective Subjective Comments No acute events reported No headache No chest pain No dyspnea Active Medications Current Medications Medications (Trade) Dose Ordered Sig/Archie Route Start Time Stop Time Status Last Admin (Trandate Inj) 10 mg Q2H PRN IV 02/26/17 16:30 (Aspirin Chew) 162 mg DAILY PO 02/27/17 09:00 03/01/17 07:38 (Pravachol) 40 mg HS PO 02/26/17 21:00 02/28/17 21:32 (NS Flush) 2 ml UNSCH PRN IV FLUSH 02/26/17 16:30 (NS Flush) 2 ml BID IV FLUSH 02/26/17 21:00 03/01/17 07:38 (Tylenol) 650 mg Q6H PRN PO 02/26/17 16:30 03/01/17 11:56 (Protonix Inj) 40 mg DAILY IV 02/27/17 09:00 03/01/17 07:38 (Tears Naturale Opth Soln) 1 drop TID EACH EYE 02/26/17 18:00 02/28/17 12:05 (Zofran Inj) 4 mg Q6H PRN IV 02/26/17 16:30 (Heparin Inj) 5,000 units Q12H SQ 02/26/17 18:00 03/01/17 05:01 Miscellaneous Information 1 Q361D XX 02/26/17 16:30 02/26/17 16:30 (Chlorhexidine 2% Cloth) 3 pack Taper DAILY@04 TOP 02/27/17 04:00 02/23/18 03:59 02/28/17 04:00 (Chlorhexidine 2% Cloth) 3 pack UNSCH PRN TOP 02/26/17 16:30 (Marisela-Colace) 1 tab BID PO 02/26/17 21:00 02/28/17 08:51 (Milk Of Magnesia Liq) 30 ml Q12H PRN PO 02/26/17 16:30 (Senokot) 17.2 mg Q12H PRN PO 02/26/17 16:30 02/28/17 21:32 (Dulcolax Supp) 10 mg DAILY PRN RECTAL 02/26/17 16:30 Lactulose 30 ml 30 ml DAILY PRN PO 02/26/17 16:30 (Diprivan 1000 Mg/100ml Inj) 100 ml @ 0 mls/hr TITRATE IV 02/26/17 16:30 (Peridex 0.12% Liq) 15 ml BID@08,20 MT 02/26/17 20:00 03/01/17 07:36 (D50w (Vial) Inj) 50 ml UNSCH PRN IV 02/26/17 16:30 (Glucagon Inj) 1 mg UNSCH PRN OTHER 02/26/17 16:30 Levothyroxine Sodium 50 mcg 50 mcg DAILY@06 PO 02/27/17 06:00 03/01/17 05:00 (Zosyn 4.5 Gm Premix) 100 ml @ 200 mls/hr Q8H IV 02/26/17 20:00 03/01/17 11:53 (Aricept) 10 mg HS PO 02/28/17 21:00 02/28/17 21:32 (Inderal) 80 mg DAILY PO 02/28/17 11:00 03/01/17 07:38 (Dilantin) 100 mg TID PO 02/28/17 13:00 03/01/17 11:56 Allergies Allergies Coded Allergies Hydrocodone (Verified Allergy, Severe, HALLUCINATIONS, 02/26/17) Exam I&O / VS 02/28/17 02/28/17 03/01/17 15:00 23:00 07:00 Intake Total 148 ml Output Total 375 ml 200 ml Balance -227 ml -200 ml Intake IV Total 148 ml Output Urine Total 375 ml 200 ml # Voids 6 # Bowel Movements 0 0 Vital Signs Date Time Temp Pulse Resp B/P Pulse Ox O2 Delivery O2 Flow Rate FiO2 03/01/17 10:27 93 03/01/17 08:34 95.9 79 18 133/63 95 03/01/17 08:00 95 Room Air 03/01/17 06:52 95.3 92 18 179/84 100 03/01/17 05:19 172/88 03/01/17 04:27 90 21 03/01/17 02:35 Room Air 03/01/17 00:00 96.3 86 22 182/85 92 02/28/17 20:24 93 21 02/28/17 20:00 75 02/28/17 20:00 97.0 77 22 172/72 99 02/28/17 16:54 96.9 79 16 137/62 94 02/28/17 16:29 Room Air Objective Micro and Labs Date/Time Procedure Status Source Growth 02/27/17 03:20 Gram Stain - Final Resulted Sputum Expectorated Sputum 02/27/17 03:20 Sputum Culture - Preliminary Resulted Sputum Expectorated Sputum MODERATE GROWTH NORMAL RESPIRATORY FL... 02/27/17 00:10 Cancelled Urine Clean Catch Karyn Sancehz MD Mar 01, 2017 12:18
--- NOTE | 2017-03-01 13:15 | HHI.PR ---
Subjective Remarks No new complaints Pt is eating fairly well Objective Vitals Vital Signs Date Time Temp Pulse Resp B/P Pulse Ox O2 Delivery O2 Flow Rate FiO2 03/01/17 12:24 97.1 73 18 146/67 95 03/01/17 10:27 93 03/01/17 08:34 95.9 79 18 133/63 95 03/01/17 08:00 95 Room Air 03/01/17 06:52 95.3 92 18 179/84 100 03/01/17 05:19 172/88 03/01/17 04:27 90 21 03/01/17 02:35 Room Air 03/01/17 00:00 96.3 86 22 182/85 92 02/28/17 20:24 93 21 02/28/17 20:00 75 02/28/17 20:00 97.0 77 22 172/72 99 02/28/17 16:54 96.9 79 16 137/62 94 02/28/17 16:29 Room Air 02/28/17 02/28/17 03/01/17 15:00 23:00 07:00 Intake Total 148 ml Output Total 375 ml 200 ml Balance -227 ml -200 ml Intake IV Total 148 ml Output Urine Total 375 ml 200 ml # Voids 6 # Bowel Movements 0 0 Result Diagram: 02/27/17 0428 02/27/17 0337 Other Results Laboratory Tests Test 03/01/17 10:00 Phenytoin (Dilantin) Level 18.8 MCG/ML Imaging Last Impressions Chest X-Ray 02/27/17 0000 Signed Impressions: Service Date/Time: Monday, February 27, 2017 03:46 - CONCLUSION: No acute disease. Josh Reyes MD Neck Magnetic Resonance Angiography 02/26/17 0000 Signed Impressions: Service Date/Time: Sunday, February 26, 2017 21:07 - CONCLUSION: Moderate stenosis at the proximal left internal carotid artery with approximately 50%% narrowing of the lumen at this level. Jeff Sheppard MD Head Magnetic Resonance Angiography 02/26/17 0000 Signed Impressions: Service Date/Time: Sunday, February 26, 2017 21:07 - CONCLUSION: No acute disease. Jeff Sheppard MD Head CT 02/26/17 0000 Signed Impressions: Service Date/Time: Sunday, February 26, 2017 14:08 - CONCLUSION: 1. White matter ischemic changes. No acute intracranial abnormality. Virgilio Marcum MD Brain MRI 02/26/17 0000 Signed Impressions: Service Date/Time: Sunday, February 26, 2017 21:07 - CONCLUSION: 1. No acute abnormality seen. 2. Age-related atrophy. 3. Suspected small vessel ischemic changes in the white matter. Jeff Sheppard MD Objective Remarks General: NAD, AAOx3 Chest: CTA Cardiac: Regular Abd: +BS, soft ND/NT Ext: No edema A/P Problem List: (1) Seizure Status: Acute Plan: - Pt is an 86 y/o female with dementia, COPD, hypothyroidism, hypertension, and chronic pain syndrome who presented to [facility] on 02/26/17 after she became unresponsive at her local [facility]. She was taken the floor lightly with assistance from the staff at the [facility]. In the ED a stroke alert was called. CT head (02/26/17) --> white matter ischemic changes otherwise unremarkable. - While she was in CT scan pt had a generalized tonic-clonic seizures of unknown duration with questionable aspiration and after which, patient received received 20 mg etomidate 100 mg of succinylcholine and was intubated by ED physician. - Dr. Sanchez/neurology was consulted. Due to patient's age and NIH of 30 not a candidate for TPA. - MRI/MRA brain (02/26/17) --> No acute abnormality seen. Age-related atrophy. Suspected small vessel ischemic changes in the white matter. - MRA Neck (02/26/17) --> Moderate stenosis at the proximal left internal carotid artery with approximately 50% narrowing of the lumen at this level. - Pt was extubated on 02/27/17 - No further seizures since admission. - She is on Dilantin 100mg TID - Pt was placed on Zosyn as there was concern for possible aspiration. WBC count was elevated on 02/27 to 14,000 but pt has been afebrile. - Pt has been on Duonebs Q6H and has been weaned off supplemental O2 to RA. - Neurology has signed off and recommended to continue on Dilantin 100mg TID and followup in 2-3 weeks for re-evaluation. - Have PT re-evaluate the pt for discharge planning - Anticipate discharge in the next 1-2 days (2) Respiratory failure Status: Acute Plan: - See above. (3) Hypertension Status: Chronic Plan: - BP has been fluctuating quite a bit. - Pt was on Inderal 80mg po daily prior to admission, which was resumed at admission (4) Gastroesophageal reflux disease Status: Chronic Plan: - Home meds continued (5) COPD (chronic obstructive pulmonary disease) Status: Chronic Plan: - Duonebs (6) Hypothyroidism Status: Chronic Plan: - Home meds continued (7) Dementia Status: Chronic Plan: - Cont. Aricept 10mg daily (8) Hyperlipidemia Status: Chronic Plan: - Home meds continued (9) GERD (gastroesophageal reflux disease) Status: Acute Plan: - PPI (10) Depression Status: Chronic Assessment and Plan Patient examined. Assessment and plan formulated with Priti Lemons PA-C. I agree with the above. Problem Qualifiers (1) Respiratory failure: Qualified Code: J96.00 - Acute respiratory failure, unspecified whether with hypoxia or hypercapnia (2) Gastroesophageal reflux disease: Qualified Code: K21.9 - Gastroesophageal reflux disease without esophagitis (3) COPD (chronic obstructive pulmonary disease): Qualified Code: J44.9 - Chronic obstructive pulmonary disease, unspecified COPD type (4) Hypothyroidism: Qualified Code: E03.9 - Hypothyroidism, unspecified type (5) Dementia: (6) Hyperlipidemia: Qualified Code: E78.5 - Hyperlipidemia, unspecified hyperlipidemia type (7) GERD (gastroesophageal reflux disease): Qualified Code: K21.9 - Gastroesophageal reflux disease, esophagitis presence not specified (8) Depression: Qualified Code: F32.9 - Depression, unspecified depression type Priti Lemons Mar 01, 2017 13:14 Doug Burr DO Mar 03, 2017 13:07
--- NOTE | 2017-03-01 14:36 | ECHRPT ---
Indication: cva/tia CONCLUSIONS The transthoracic study is normal by two-dimensional, color flow imaging and Doppler interrogation. BP: / HR: Rhythm: Sinus MEASUREMENTS (Male / Female) Normal Values Technical Quality:Fair 2D ECHO LV Diastolic Diameter PLAX 3.7 cm 4.2 - 5.9 / 3.9 - 5.3 cm LV Systolic Diameter PLAX 2.8 cm IVS Diastolic Thickness 1.4 cm 0.6 - 1.0 / 0.6 - 0.9 cm LVPW Diastolic Thickness 0.7 cm 0.6 - 1.0 / 0.6 - 0.9 cm LV Relative Wall Thickness 0.6 RV Internal Dim ED PLAX 1.8 cm M-MODE Aortic Root Diameter MM 3.2 cm AV Cusp Separation MM 2.1 cm DOPPLER Mitral E Point Velocity 53.3 cm/s Mitral A Point Velocity 75.5 cm/s Mitral E to A Ratio 0.7 LV E' Lateral Velocity 5.3 cm/s Mitral E to LV E' Lateral Ratio 10.1 TR Peak Velocity 337.0 cm/s TR Peak Gradient 45.4 mmHg FINDINGS LEFT VENTRICLE Normal left ventricular size and wall thickness. The left ventricular systolic function is normal wi th an estimated ejection fraction in the range of 55-60%. Left ventricular diastolic function parameters a re normal. RIGHT VENTRICLE Normal right ventricular size and systolic function. LEFT ATRIUM The left atrial size is normal. RIGHT ATRIUM The right atrial size is normal. ATRIAL SEPTUM Normal atrial septal thickness without atrial level shunting by limited color doppler interrogation. AORTA The aortic root and proximal ascending aorta are normal in size on limited imaging. MITRAL VALVE Mitral annular calcification is present. Mild thickening of the mitral valve leaflets. Trace mitral valve regurgitation. No mitral valve stenosis. AORTIC VALVE Aortic valve sclerosis is present. Trileaflet aortic valve. No aortic valve regurgitation. No aortic valve stenosis. TRICUSPID VALVE Structurally normal tricuspid valve. No tricuspid valve stenosis or regurgitation. PULMONARY VALVE The pulmonary valve is not well visualized. VESSELS The inferior vena cava is normal in size. PERICARDIUM No pericardial effusion. Efrem Luna MD, FACC (Electronically Signed) Final Date:01 March 2017 14:36
[2017-03-01] MEDS: traMADol HCL 50 MG TAB PO PRN (18:24)
[2017-03-01] MEDS: DONEPEZIL HCL 5 MG TAB PO SCH (20:48)
[2017-03-01] MEDS: PRAVASTATIN SOD 40 MG TAB PO SCH (20:48)
[2017-03-01 21:55] LABS: CKMB 1.2 NG/ML (0.5-3.6)
[2017-03-02] VITALS (9 sets, daily range): BP systolic 134–185; BP diastolic 66–87; PULSE 69–81; RESP 18–22; TEMP 95.7–96.9; O2SAT 92–94
[2017-03-02] MEDS: traMADol HCL 50 MG TAB PO PRN ×3 (00:15→16:54)
[2017-03-02] MEDS: NITROGLYCERIN 0.4 MG SL 25 TABS/BTL SL PRN ×2 (00:44→01:13)
[2017-03-02 03:51] LABS: BASOPHIL % 0.3 % (0.0-2.0); EOSINOPHIL # 0.2 TH/MM3 (0-0.4); EOSINOPHIL % 2.3 % (0.0-4.0); HEMO FLAGS DIFF FINAL; LYMPH % 30.6 % (9.0-44.0); LYMPHOCYTE # 3.3 TH/MM3 (1.0-4.8); MEAN CELL VOLUME 89.1 FL (80.0-100.0); MEAN CORPUSCULAR HEMOGLOBIN 29.9 PG (27.0-34.0); MEAN CORPUSCULAR HGB CONC 33.6 % (32.0-36.0); MONO % 11.1 % (0.0-8.0); NEUT % 55.7 % (16.0-70.0); PLATELET COUNT 204 TH/MM3 (150-450); RED BLOOD COUNT 4.83 MIL/MM3 (4.00-5.30); RED CELL DISTRIBUTION WIDTH 14.5 % (11.6-17.2); WHITE BLOOD COUNT 10.7 TH/MM3 (4.0-11.0)
[2017-03-02] MEDS: RESP: ALBUTEROL 2.5 MG/IPRATROPIUM 0.5 MG NEB (SCH) INH ×4 (04:00→21:00)
[2017-03-02 04:29] LABS: CKMB 1.4 NG/ML (0.5-3.6)
[2017-03-02] MEDS: PIPERACIL-TAZO 4.5 GM PREMIX 100 ML IV SCH ×2 (04:42→10:53)
[2017-03-02] MEDS: HEPARIN SODIUM - SQ 10,000 UNITS/ML VIAL SQ SCH ×2 (05:43→16:51)
[2017-03-02] MEDS: LEVOTHYROXINE SODIUM 50 MCG TAB PO SCH (05:43)
[2017-03-02] MEDS: ARTIFICIAL TEARS OPTH SOLN 15 ML BTL EACH EYE SCH ×3 (07:30→14:36)
[2017-03-02] MEDS: CHLORHEXIDINE 0.12% (ORAL KIT) 15 ML CUP MT SCH ×2 (07:30→20:00)
[2017-03-02] MEDS: PANTOPRAZOLE SODIUM 40 MG VIAL IV SCH (07:33)
[2017-03-02] MEDS: SODIUM CHLORIDE 0.9% FLUSH 10 ML FLUSH IV FLUSH SCH ×2 (07:34→21:52)
[2017-03-02] MEDS: ASPIRIN 81 MG CHEW TAB PO SCH (07:35)
[2017-03-02] MEDS: DOCUSATE SODIUM 50 MG/SENNA 8.6 MG TAB PO SCH ×2 (07:36→21:51)
[2017-03-02] MEDS: PHENYTOIN SODIUM 100 MG CAP PO SCH ×3 (07:36→16:52)
[2017-03-02] MEDS: PROPRANOLOL HCL 80 MG TAB PO SCH (07:36)
[2017-03-02 09:14] LABS: BICARBONATE 30.7 MEQ/L (21.0-32.0)
[2017-03-02 09:18] LABS: POTASSIUM 2.6 MEQ/L (3.5-5.1)
--- NOTE | 2017-03-02 09:29 | MB ---
cc: EFREM GRIFFITHS DATE OF CONSULTATION 03/02/2017 INDICATION Chest pain. HISTORY OF PRESENT ILLNESS An 86-year-old female. She is pleasantly demented. She was originally from [facility]. She presented to [facility] initially with an episode of unresponsiveness at her assisted living facility. Stroke Alert was initiated. CT of the head showed some white matter changes which were relatively unremarkable. She has worked up for seizure. He last night apparently she had an couple episodes of chest pain. Unfortunately, given the patient's dementia, she does not really recall the symptoms well, does not have any character of pain that she had, duration or severity. Her electrocardiogram was unremarkable. Troponin was negative. She has no prior history of any significant heart disease. PAST MEDICAL HISTORY 1. Dementia. 2. Depression. 3. GERD. 4. COPD. 5. Hypothyroidism. 6. Chronic cough. 7. Hypertension. 8. Dyslipidemia. 9. Osteoporosis. REPORTED MEDICATIONS 1. Amlodipine. 2. Prilosec. 3. Vitamin D. 4. Aspirin. 5. Lasix. 6. Inderal. 7. Levoxyl. FAMILY HISTORY Denies any family history of early coronary disease or sudden cardiac . SOCIAL HISTORY Obtained from chart records. She has smoked for about 30 years but quit in 1979. Occasional alcohol use. No drug use. REVIEW OF SYSTEMS A 12-point review of some was performed, negative unless otherwise noted in the History of Present Illness. PHYSICAL EXAMINATION VITAL SIGNS: Temperature is 95, pulse 81, blood pressure 195/87 mmHg. GENERAL: Alert and oriented x 3, in no acute distress. HEENT: Exam shows pupils reactive to light and accommodation. Extraocular movements are intact. No elevation of jugular venous distention. No thyromegaly. No lymphadenopathy. No carotid bruits. LUNGS: Clear to auscultation bilaterally. CARDIOVASCULAR EXAM: Regular rate and rhythm without murmurs, rubs or gallops. ABDOMEN: Non-tender, non-distended. Good bowel sounds. No hepatosplenomegaly. No clubbing, cyanosis or edema. Good peripheral pulses. Cranial nerves intact. Motor and sensory grossly intact. LABORATORY DATA WBC 10.7, hemoglobin is 14.5, platelet count was 204. Sodium 136, potassium 3.9, creatinine 0.66. Troponins negative. ELECTROCARDIOGRAM Sinus rhythm. Nonspecific ST-T wave abnormality. Left axis deviation, incomplete right bundle branch block, left anterior hemiblock. ASSESSMENT 1. Atypical chest pain. 2. Dementia. PLAN The patient's electrocardiogram is unremarkable. Troponins negative. ASSESSMENT AND PLAN Given her age, dementia, and lack of progressive symptoms, we will treat with conservative approach. No indication for any invasive strategy. I would like to avoid a noninvasive stress testing since we have a low likelihood of proceeding with something invasive. Would recommend aggressive blood pressure control. We will sign off. Call if any questions. Efrem Griffiths MD SM/SSB /8:44 AM /9:19 AM
[2017-03-02 09:42] LABS: CKMB 1.8 NG/ML (0.5-3.6)
[2017-03-02] MEDS ORDERED: POTASSIUM CHLORIDE 20 MEQ CONTROLLED RELEASE TAB PO ONE ×2 (10:45→15:00)
--- NOTE | 2017-03-02 13:34 | HHI.PR ---
Subjective Remarks Pt had complained of some vague chest pain and back pain last night. Cardiology was consulted but did not feel that there was any need for invasive measures Pt denies any current chest pain. Objective Vitals Vital Signs Date Time Temp Pulse Resp B/P Pulse Ox O2 Delivery O2 Flow Rate FiO2 03/02/17 12:11 96.2 74 18 161/76 94 03/02/17 09:37 70 03/02/17 08:32 94 21 03/02/17 08:15 95.9 81 18 185/87 93 03/02/17 05:57 95.7 69 21 158/72 93 03/02/17 04:00 92 21 03/02/17 00:00 96.7 73 22 139/66 93 03/01/17 20:36 77 03/01/17 20:00 96.3 78 18 145/69 93 03/01/17 16:26 96.0 67 18 139/65 95 03/01/17 15:53 95 21 03/01/17 03/01/17 03/02/17 15:00 23:00 07:00 Intake Total 220 ml 100 ml 100 ml Balance 220 ml 100 ml 100 ml Intake Oral 120 ml IV Total 100 ml 100 ml 100 ml # Voids 2 2 2 # Bowel Movements 0 0 Result Diagram: 03/02/17 0326 03/02/17 0709 Other Results Laboratory Tests Test 03/01/17 03/01/17 03/02/17 03/02/17 10:00 20:40 03:26 07:09 Phenytoin (Dilantin) Level 18.8 MCG/ML Total Creatine Kinase 889 U/L 767 U/L 648 U/L Creatine Kinase MB 1.2 NG/ML 1.4 NG/ML 1.8 NG/ML Creatine Kinase MB % 0.1 % 0.2 % 0.3 % Troponin I 0.05 NG/ML 0.04 NG/ML 0.05 NG/ML White Blood Count 10.7 TH/MM3 Red Blood Count 4.83 MIL/MM3 Hemoglobin 14.5 GM/DL Hematocrit 43.0 % Mean Corpuscular Volume 89.1 FL Mean Corpuscular Hemoglobin 29.9 PG Mean Corpuscular Hemoglobin 33.6 % Concent Red Cell Distribution Width 14.5 % Platelet Count 204 TH/MM3 Mean Platelet Volume 8.8 FL Neutrophils (%) (Auto) 55.7 % Lymphocytes (%) (Auto) 30.6 % Monocytes (%) (Auto) 11.1 % Eosinophils (%) (Auto) 2.3 % Basophils (%) (Auto) 0.3 % Neutrophils # (Auto) 6.0 TH/MM3 Lymphocytes # (Auto) 3.3 TH/MM3 Monocytes # (Auto) 1.2 TH/MM3 Eosinophils # (Auto) 0.2 TH/MM3 Basophils # (Auto) 0.0 TH/MM3 CBC Comment DIFF FINAL Differential Comment Sodium Level 134 MEQ/L Potassium Level 2.6 MEQ/L Chloride Level 95 MEQ/L Carbon Dioxide Level 30.7 MEQ/L Anion Gap 8 MEQ/L Blood Urea Nitrogen 8 MG/DL Creatinine 0.52 MG/DL Estimat Glomerular Filtration 111 ML/MIN Rate Random Glucose 112 MG/DL Calcium Level 9.0 MG/DL Imaging Last Impressions Chest X-Ray 02/27/17 0000 Signed Impressions: Service Date/Time: Monday, February 27, 2017 03:46 - CONCLUSION: No acute disease. Josh Reyes MD Neck Magnetic Resonance Angiography 02/26/17 0000 Signed Impressions: Service Date/Time: Sunday, February 26, 2017 21:07 - CONCLUSION: Moderate stenosis at the proximal left internal carotid artery with approximately 50%% narrowing of the lumen at this level. Jeff Sheppard MD Head Magnetic Resonance Angiography 02/26/17 0000 Signed Impressions: Service Date/Time: Sunday, February 26, 2017 21:07 - CONCLUSION: No acute disease. Jeff Sheppard MD Head CT 02/26/17 0000 Signed Impressions: Service Date/Time: Sunday, February 26, 2017 14:08 - CONCLUSION: 1. White matter ischemic changes. No acute intracranial abnormality. Virgilio Marcum MD Brain MRI 02/26/17 0000 Signed Impressions: Service Date/Time: Sunday, February 26, 2017 21:07 - CONCLUSION: 1. No acute abnormality seen. 2. Age-related atrophy. 3. Suspected small vessel ischemic changes in the white matter. Jeff Sheppard MD Objective Remarks General: NAD, Awake and alert Chest: CTA Cardiac: Regular Abd: +BS, soft ND/NT Ext: No edema A/P Problem List: (1) Seizure Status: Acute Plan: - Pt is an 86 y/o female with dementia, COPD, hypothyroidism, hypertension, and chronic pain syndrome who presented to [facility] on 02/26/17 after she became unresponsive at her local [facility]. She was taken the floor lightly with assistance from the staff at the [facility]. In the ED a stroke alert was called. CT head (02/26/17) --> white matter ischemic changes otherwise unremarkable. - While she was in CT scan pt had a generalized tonic-clonic seizures of unknown duration with questionable aspiration and after which, patient received received 20 mg etomidate 100 mg of succinylcholine and was intubated by ED physician. - Dr. Sanchez/neurology was consulted. Due to patient's age and NIH of 30 not a candidate for TPA. - MRI/MRA brain (02/26/17) --> No acute abnormality seen. Age-related atrophy. Suspected small vessel ischemic changes in the white matter. - MRA Neck (02/26/17) --> Moderate stenosis at the proximal left internal carotid artery with approximately 50% narrowing of the lumen at this level. - Pt was extubated on 02/27/17 - No further seizures since admission. - She is on Dilantin 100mg TID - Pt was placed on Zosyn as there was concern for possible aspiration. WBC count was elevated on 02/27 to 14,000. Repeat labs on 03/02 with WBC count down to 10.7. Pt has been afebrile. - Pt has been on Duonebs Q6H and has been weaned off supplemental O2 to RA. - Neurology has signed off and recommended to continue on Dilantin 100mg TID and followup in 2-3 weeks for re-evaluation. - PT re-evaluated the pt yesterday and recommended SNF placement. - Pt had complained of some vague chest pain on 03/01/17 and Cardiology was consulted. Serial troponin were negative. No invasive or noninvasive testing was felt to be necessary at this time. Cardiology has signed off. - Discussed this with CM today and will talk with the family about SNF placement. - Anticipate discharge to SNF tomorrow (2) Respiratory failure Status: Acute Plan: - See above. (3) Hypertension Status: Chronic Plan: - BP has been fluctuating quite a bit. - Pt was on Inderal 80mg po daily prior to admission, which was resumed at admission - We will add on Lisinopril 10mg Q12H - Monitor BP (4) Gastroesophageal reflux disease Status: Chronic Plan: - Home meds continued (5) COPD (chronic obstructive pulmonary disease) Status: Chronic Plan: - Duonebs (6) Hypothyroidism Status: Chronic Plan: - Home meds continued (7) Dementia Status: Chronic Plan: - Cont. Aricept 10mg daily (8) Hyperlipidemia Status: Chronic Plan: - Home meds continued (9) GERD (gastroesophageal reflux disease) Status: Acute Plan: - PPI (10) Depression Status: Chronic Assessment and Plan Patient examined. Assessment and plan formulated with Priti Lemons PA-C. I agree with the above. Problem Qualifiers (1) Respiratory failure: Qualified Code: J96.00 - Acute respiratory failure, unspecified whether with hypoxia or hypercapnia (2) Gastroesophageal reflux disease: Qualified Code: K21.9 - Gastroesophageal reflux disease without esophagitis (3) COPD (chronic obstructive pulmonary disease): Qualified Code: J44.9 - Chronic obstructive pulmonary disease, unspecified COPD type (4) Hypothyroidism: Qualified Code: E03.9 - Hypothyroidism, unspecified type (5) Dementia: (6) Hyperlipidemia: Qualified Code: E78.5 - Hyperlipidemia, unspecified hyperlipidemia type (7) GERD (gastroesophageal reflux disease): Qualified Code: K21.9 - Gastroesophageal reflux disease, esophagitis presence not specified (8) Depression: Qualified Code: F32.9 - Depression, unspecified depression type Priti Lemons Mar 02, 2017 13:34 Doug Burr DO Mar 03, 2017 13:08
--- NOTE | 2017-03-02 18:07 | EKG ---
Date Performed: 03/01/2017 Time Performed: 19:04:55 PTAGE: 86 years EKG: Sinus rhythm INCOMPLETE RIGHT BUNDLE BRANCH BLOCK LEFT ANTERIOR FASCICULAR BLOCK ABNORMAL ECG PREVIOUS TRACING : 02/26/2017 16.33 Compared to prior tracing no significant change DOCTOR: Hannah Bennett Interpretating Date/Time 03/02/2017 18:06:35
--- NOTE | 2017-03-02 18:08 | EKG ---
Date Performed: 03/02/2017 Time Performed: 08:42:50 PTAGE: 86 years EKG: Sinus rhythm PATTERN CONSISTENT WITH PULMONARY DISEASE INCOMPLETE RIGHT BUNDLE BRANCH BLOCK LEFT ANTERIOR FASCICU LAR BLOCK ABNORMAL ECG PREVIOUS TRACING : 03/02/2017 03.14 Compared to prior tracing no significant change DOCTOR: Hannah Bennett Interpretating Date/Time 03/02/2017 18:06:51
--- NOTE | 2017-03-02 18:32 | EKG ---
Date Performed: 03/02/2017 Time Performed: 03:14:16 PTAGE: 86 years EKG: Sinus rhythm with borderline 1st degree A-V block. Left axis deviation Incomplete RBBB Lateral T wave changes are nonspecific When allowing for the marked baseline artifact, there's been no significant serial gutierres e since the prior tracing Abnormal ECG NO PREVIOUS TRACING DOCTOR: Hannah Bennett Interpretating Date/Time 03/02/2017 18:32:19
[2017-03-02] MEDS: DONEPEZIL HCL 5 MG TAB PO SCH (21:51)
[2017-03-02] MEDS: PRAVASTATIN SOD 40 MG TAB PO SCH (21:51)
[2017-03-02] MEDS: LISINOPRIL 10 MG TAB PO SCH (21:51)
[2017-03-02 22:15] LABS: BICARBONATE 27.4 MEQ/L (21.0-32.0); POTASSIUM 3.7 MEQ/L (3.5-5.1)
[2017-03-03] VITALS: BP 129/64; PULSE 87; RESP 20; TEMP 98.6; O2SAT 93
[2017-03-03] MEDS: CHLORHEXIDINE GLUCONATE 2 % 1 PACK (2 CLOTHS) TOP SCH (02:16)
[2017-03-03 04:00] VITALS: BP 137/67; PULSE 81; RESP 20; TEMP 98.2; O2SAT 93
[2017-03-03] MEDS: LEVOTHYROXINE SODIUM 50 MCG TAB PO SCH (05:27)
[2017-03-03] MEDS: HEPARIN SODIUM - SQ 10,000 UNITS/ML VIAL SQ SCH (05:27)
[2017-03-03 07:29] VITALS: BP 136/78; PULSE 96; RESP 24; TEMP 96.4; O2SAT 100
[2017-03-03 07:56] LABS: AUTOMATED NEUTROPHIL # 5.3 TH/MM3 (1.8-7.7); BASOPHIL # 0.1 TH/MM3 (0-0.2); BASOPHIL % 0.5 % (0.0-2.0); EOSINOPHIL # 0.4 TH/MM3 (0-0.4); EOSINOPHIL % 3.9 % (0.0-4.0); HEMATOCRIT 43.6 % (35.0-46.0); HEMO FLAGS DIFF FINAL; LYMPH % 34.1 % (9.0-44.0); LYMPHOCYTE # 3.5 TH/MM3 (1.0-4.8); MEAN CELL VOLUME 91.2 FL (80.0-100.0); MEAN CORPUSCULAR HEMOGLOBIN 29.3 PG (27.0-34.0); MEAN CORPUSCULAR HGB CONC 32.2 % (32.0-36.0); MONO % 9.9 % (0.0-8.0); NEUT % 51.6 % (16.0-70.0); PLATELET COUNT 204 TH/MM3 (150-450); RED BLOOD COUNT 4.78 MIL/MM3 (4.00-5.30); RED CELL DISTRIBUTION WIDTH 14.4 % (11.6-17.2); WHITE BLOOD COUNT 10.3 TH/MM3 (4.0-11.0)
[2017-03-03 08:00] VITALS: BP 131/70; PULSE 90; RESP 20; TEMP 98; O2SAT 92
[2017-03-03] MEDS: CHLORHEXIDINE 0.12% (ORAL KIT) 15 ML CUP MT SCH (08:00)
[2017-03-03] MEDS: PHENYTOIN SODIUM 100 MG CAP PO SCH ×2 (08:24→12:45)
[2017-03-03] MEDS: PANTOPRAZOLE SODIUM 40 MG VIAL IV SCH (08:25)
[2017-03-03] MEDS: PROPRANOLOL HCL 80 MG TAB PO SCH (08:25)
[2017-03-03] MEDS: ASPIRIN 81 MG CHEW TAB PO SCH (08:26)
[2017-03-03] MEDS: DOCUSATE SODIUM 50 MG/SENNA 8.6 MG TAB PO SCH (08:26)
[2017-03-03] MEDS: LISINOPRIL 10 MG TAB PO SCH (08:26)
[2017-03-03] MEDS: ARTIFICIAL TEARS OPTH SOLN 15 ML BTL EACH EYE SCH ×2 (08:27→12:48)
[2017-03-03] MEDS: SODIUM CHLORIDE 0.9% FLUSH 10 ML FLUSH IV FLUSH SCH (08:28)
[2017-03-03 08:31] LABS: BICARBONATE 31.9 MEQ/L (21.0-32.0); MAGNESIUM 1.7 MG/DL (1.5-2.5); POTASSIUM 3.3 MEQ/L (3.5-5.1)
[2017-03-03 12:00] VITALS: BP 144/68; PULSE 77; RESP 20; TEMP 98.5; O2SAT 92
[2017-03-03] MEDS: traMADol HCL 50 MG TAB PO PRN (12:44)
--- NOTE | 2017-03-03 13:11 | HHI.DS ---
Discharge Summary Admission Date Feb 26, 2017 at 15:00 Discharge Date: Mar 03, 2017 Admitting Diagnosis seizure (1) Seizure Diagnosis: Principal (2) Respiratory failure Diagnosis: Principal (3) Hypertension Diagnosis: Secondary (4) Gastroesophageal reflux disease Diagnosis: Secondary (5) COPD (chronic obstructive pulmonary disease) Diagnosis: Secondary (6) Hypothyroidism Diagnosis: Secondary (7) Dementia Diagnosis: Secondary (8) Hyperlipidemia Diagnosis: Secondary (9) GERD (gastroesophageal reflux disease) Diagnosis: Secondary (10) Depression Diagnosis: Secondary Consultants Dr. Efrem Luna, Cardiology Dr. Temitope Lopez, Neurology CBC/BMP: 03/03/17 0640 03/03/17 0640 Significant Findings Laboratory Tests Test 03/01/17 03/02/17 03/02/17 03/02/17 20:40 03:26 07:09 21:27 Total Creatine Kinase 889 U/L 767 U/L 648 U/L (26-192) (26-192) (26-192) Monocytes (%) (Auto) 11.1 % (0.0-8.0) Monocytes # (Auto) 1.2 TH/MM3 (0-0.9) Sodium Level 134 MEQ/L 133 MEQ/L (136-145) (136-145) Potassium Level 2.6 MEQ/L (3.5-5.1) Chloride Level 95 MEQ/L (98-107) Random Glucose 112 MG/DL 118 MG/DL (74-106) (74-106) Test 03/03/17 06:40 Monocytes (%) (Auto) 9.9 % (0.0-8.0) Monocytes # (Auto) 1.0 TH/MM3 (0-0.9) Potassium Level 3.3 MEQ/L (3.5-5.1) Creatinine 0.48 MG/DL (0.50-1.00) Imaging Last Impressions Chest X-Ray 02/27/17 0000 Signed Impressions: Service Date/Time: Monday, February 27, 2017 03:46 - CONCLUSION: No acute disease. Josh Reyes MD Neck Magnetic Resonance Angiography 02/26/17 0000 Signed Impressions: Service Date/Time: Sunday, February 26, 2017 21:07 - CONCLUSION: Moderate stenosis at the proximal left internal carotid artery with approximately 50%% narrowing of the lumen at this level. Jeff Sheppard MD Head Magnetic Resonance Angiography 02/26/17 0000 Signed Impressions: Service Date/Time: Sunday, February 26, 2017 21:07 - CONCLUSION: No acute disease. Jeff Sheppard MD Head CT 02/26/17 0000 Signed Impressions: Service Date/Time: Sunday, February 26, 2017 14:08 - CONCLUSION: 1. White matter ischemic changes. No acute intracranial abnormality. Virgilio Marcum MD Brain MRI 02/26/17 0000 Signed Impressions: Service Date/Time: Sunday, February 26, 2017 21:07 - CONCLUSION: 1. No acute abnormality seen. 2. Age-related atrophy. 3. Suspected small vessel ischemic changes in the white matter. Jeff Sheppard MD PE at Discharge General: NAD, Awake and alert Chest: CTA Cardiac: Regular Abd: +BS, soft ND/NT Ext: No edema Hospital Course (1) Seizure Status: Acute Plan: - Pt is an 86 y/o female with dementia, COPD, hypothyroidism, hypertension, and chronic pain syndrome who presented to [facility] on 02/26/17 after she became unresponsive at her local [facility]. She was assisted to the floor lightly with assistance from the staff at the [facility]. In the ED a stroke alert was called. CT head (02/26/17) --> white matter ischemic changes otherwise unremarkable. - While she was in CT scan pt had a generalized tonic-clonic seizures of unknown duration with questionable aspiration and after which, patient received received 20 mg etomidate 100 mg of succinylcholine and was intubated by ED physician. - Dr. Sanchez/neurology was consulted. Due to patient's age and NIH of 30 not a candidate for TPA. - MRI/MRA brain (02/26/17) --> No acute abnormality seen. Age-related atrophy. Suspected small vessel ischemic changes in the white matter. - MRA Neck (02/26/17) --> Moderate stenosis at the proximal left internal carotid artery with approximately 50% narrowing of the lumen at this level. - Pt was extubated on 02/27/17 - No further seizures since admission. - Dilantin 100mg TID - Pt was placed on Zosyn (02/26 - 03/02/17) as there was concern for possible aspiration. WBC count was elevated on 02/27 to 14,000. Repeat labs on 03/02 with WBC count down to 10.7. Pt has been afebrile. - Pt has been on Duonebs Q6H and has been weaned off supplemental O2 to RA. - Neurology has signed off and recommended to continue on Dilantin 100mg TID and followup in 2-3 weeks for re-evaluation. - PT re-evaluated the pt recommended SNF placement. - Pt had complained of some vague chest pain on 03/01/17 and Cardiology was consulted. Serial troponin were negative. No invasive or noninvasive testing was felt to be necessary at this time. Cardiology has signed off. - discharge to SNF - see discharge orders (2) Respiratory failure Status: Acute Plan: - See above. (3) Hypertension Status: Chronic Plan: - BP has been fluctuating quite a bit. - Pt was on Inderal 80mg po daily prior to admission, which was resumed at admission - added Lisinopril 10mg Q12H with improvement to pt's blood pressures - Monitor BP (4) Gastroesophageal reflux disease Status: Chronic Plan: - Home meds continued (5) COPD (chronic obstructive pulmonary disease) Status: Chronic Plan: - Duonebs prn (6) Hypothyroidism Status: Chronic Plan: - Home meds continued (7) Dementia Status: Chronic Plan: - Cont. Aricept 10mg daily (8) Hyperlipidemia Status: Chronic Plan: - Home meds continued (9) GERD (gastroesophageal reflux disease) Status: Acute Plan: - PPI (10) Depression Status: Chronic Pt Condition on Discharge: Stable Discharge Disposition: Discharge to SNF Discharge Instructions DIET: Follow Instructions for: Heart Healthy Diet Speech Therapy-Diet Recommends: Regular Activities you can perform: Weight Bearing as Doug Mantilla DO Mar 03, 2017 13:10
[2017-03-03] MEDS ORDERED: PRAV40TA PO (13:26)
[2017-03-03] MEDS ORDERED: LISI10TA3 PO (13:26)
[2017-03-03] MEDS ORDERED: DILA100C PO (13:26)
[2017-03-03] MEDS ORDERED: IPRASOL INH (13:26)
[2017-03-03] MEDS ORDERED: ULTR50TA5 PO (13:26)
--- NOTE | 2017-03-03 13:32 | HHI.DCPOC ---
Discharge Care Plan Diagnosis: (1) Seizure (2) Respiratory failure (3) Hypothyroidism (4) Depression (5) Hypertension Goals to Promote Your Health * To prevent worsening of your condition and complications * To maintain your health at the optimal level Directions to Meet Your Goals Take your medications as prescribed Follow your dietary instruction Follow activity as directed Keep your appointments as scheduled Take your immunizations and boosters as scheduled If your symptoms worsen call your PCP, if no PCP go to Urgent Care Center or Emergency Room Smoking is Dangerous to Your Health. Avoid second hand smoke Call the 24-hour hour crisis hotline for domestic abuse at Doug Burr DO Mar 03, 2017 13:32
[2017-03-03 13:46] VITALS: PULSE 80
== END 2017-03-03 17:13 | DRG 100 ==
LOC: NEPE 13:59 → NEDA 15:00 → N03A 15:45 → N05A 02-28 16:07
PROVIDERS: ADMIT Hospitalist; ATTEND Hospitalist
PROC: 0T9B70Z Drainage of Bladder with Drainage Device, Via Natural or Artificial Opening (ICD-10-PCS; principal; 2017-02-26)
PROC: 5A1945Z Respiratory Ventilation, 24-96 Consecutive Hours (ICD-10-PCS; 2017-02-26)
PROC: 0BH17EZ Insertion of Endotracheal Airway into Trachea, Via Natural or Artificial Opening (ICD-10-PCS; 2017-02-26)
DX: G40.409 Other generalized epilepsy and epileptic syndromes, not intractable, without status epilepticus (principal); J96.00 Acute respiratory failure, unspecified whether with hypoxia or hypercapnia; J44.9 Chronic obstructive pulmonary disease, unspecified; F03.90 Unspecified dementia, unspecified severity, without behavioral disturbance, psychotic disturbance, mood disturbance, and anxiety; N18.9 Chronic kidney disease, unspecified; I12.9 Hypertensive chronic kidney disease with stage 1 through stage 4 chronic kidney disease, or unspecified chronic kidney disease; F41.9 Anxiety disorder, unspecified; F32.9 Major depressive disorder, single episode, unspecified; K21.0 Gastro-esophageal reflux disease with esophagitis; M19.90 Unspecified osteoarthritis, unspecified site; M81.0 Age-related osteoporosis without current pathological fracture; G50.0 Trigeminal neuralgia; G43.909 Migraine, unspecified, not intractable, without status migrainosus; R29.810 Facial weakness; E03.9 Hypothyroidism, unspecified; K59.09 Other constipation; E78.5 Hyperlipidemia, unspecified; G89.4 Chronic pain syndrome; I89.0 Lymphedema, not elsewhere classified; Z98.1 Arthrodesis status; Z82.49 Family history of ischemic heart disease and other diseases of the circulatory system; Z87.891 Personal history of nicotine dependence; R07.89 Other chest pain; M48.54XD Collapsed vertebra, not elsewhere classified, thoracic region, subsequent encounter for fracture with routine healing; I65.22 Occlusion and stenosis of left carotid artery; T17.918A Gastric contents in respiratory tract, part unspecified causing other injury, initial encounter; X58.XXXA Exposure to other specified factors, initial encounter; Y93.89 Activity, other specified; Y92.238 Other place in hospital as the place of occurrence of the external cause
CPT/HCPCS: 31500; 36600; 51702; 70450; 70544; 70548; 70551; 71010; 80048; 80053; 80061; 80185; 80307; 81001; 82435; 82550; 82552; 82565; 82805; 82947; 82948; 83036; 83605; 83690; 83735; 84100; 84132; 84295; 84443; 84484; 84520; 84702; 85025; 85384; 85610; 85730; 86850; 86900; 86901; 87070; 87205; 87641; 93005; 93306; 94002; 94003; 94150; 94640; 94664; 95819; 96365; A9579; C9113; J1165; J1644; J2060; J2543; J7030; Q2009